=== PATIENT | male | born 1985 | race Caucasian/White ===

== ENCOUNTER 2020-03-13 02:12 | Inpatient (IN) | payer MEDICARE, MEDICAID ==
[~2020-03-13] VITALS: Ht 152.4 cm; Wt 67.0 kg
[~2020-03-13 02:12] MED LIST: DULO20CA PO; HYDR2TAB58 PO; INSLANTI SC; INSLISPI SC; LISI-646 PO; LISI2.5T47 PO
[2020-03-13] MEDS ORDERED: SODIUM CHLORIDE 0.9% 1,000 ML IV ONE (04:15)
[2020-03-13 04:38] LABS: Urine Bacteria FEW /hpf (None Seen); Urine Blood TRACE /uL (Negative); Urine Hyaline Cast FEW /lpf (0 - 2); Urine Specific Gravity 1.021 (1.001-1.035); Urine WBC 1 /hpf (0 - 3)
[2020-03-13] MEDS ORDERED: InsuLIN REG 1unit/0.01ml Soln (100units/ml) IV ONE (05:30)
[2020-03-13] MEDS ORDERED: SODIUM BICARBONATE 8.4 % INJ 50ML VIAL IV ONE (06:00)
[2020-03-13 07:44] LABS: Hematocrit 50.6 % (41.0-53.0); Hemoglobin 15.1 g/dL (13.5-17.5); Mean Corpuscular Hemoglobin 28.2 pg (28.0-32.0); Mean Corpuscular Hgb Conc. 29.9 g/dL (32.0-36.0); Mean Corpuscular Volume 94.3 fL (80.0-100.0); Platelet Count (auto) 497 10^3/uL (140-450); Red Blood Cells 5.37 10^6/uL (4.5-5.90); Red Cell Distribution Width 14.6 % (11.8-14.3); White Blood Cell 23.5 10^3/uL (4.4-10.8)
[2020-03-13 07:47] LABS: Basophils % (manual) 0 (0.0-2.0); Blast Cells 0; Eosinophils % (manual) 0 (0-7); Metamyelocytes % 0; Myelocytes % 0; Promyelocytes % 0; Reactive Lymphocytes 0
[2020-03-13 07:56] LABS: Albumin 3.4 g/dL (3.4-5.0); Calcium 9.7 mg/dL (8.5-10.1)
[2020-03-13] MEDS: SODIUM CHLORIDE 0.9% 1,000 ML IV SCH ×5 (08:00→10:21)
[2020-03-13 08:05] LABS: Bilirubin, Total 0.4 mg/dL (0.2-1.0); Total Protein 8.7 g/dL (6.4-8.2)
[2020-03-13 08:11] LABS: Potassium 5.7 mmol/L (3.5-5.1)
[2020-03-13 08:12] LABS: BUN/Creatinine Ratio 23.9
[2020-03-13] MEDS ORDERED: InsuLIN R (HUMAN) 100 UNITS in SODIUM CHL 0.9% 99 ML IV SCH ×2 (08:13→16:15)
[2020-03-13] MEDS ORDERED: DEXTROSE (50%) 50ML SYRG IV PRN ×2 (08:15→16:30)
[2020-03-13 08:39] LABS: Band Neutrophils % (manual) 2; Lymphocytes % (manual) 9 (10.0-50.0); Monocytes % (manual) 2 (0-12)
[2020-03-13] MEDS: ACCU-CHEK COMFORT CURVE STRIP VI SCH ×8 (09:19→18:04)
[2020-03-13 09:41] LABS: Lactic Acid w/Reflex 5.2 mmol/L (0.4-2.0)
[2020-03-13] MEDS ORDERED: LORazepam 0.5 MG TAB PO PRN (10:15)
[2020-03-13] MEDS ORDERED: DOCUSATE SOD 100 MG CAP PO PRN (10:15)
[2020-03-13] MEDS ORDERED: ONDANSETRON HCL 4 MG/2 ML VIAL IV PRN (10:15)
[2020-03-13] MEDS ORDERED: HYDROcodone-ACET 5/325MG TAB PO PRN (10:15)
[2020-03-13] MEDS ORDERED: CEFTRIAXONE SODIUM 2 GM in D5W 5% 50 ML IV ONE (10:15)
[2020-03-13] MEDS ORDERED: MORPHINE SULF INJ 2 MG/ML SYRINGE 1ML IV PRN ×2 (10:15)
[2020-03-13] MEDS ORDERED: ACETAMINOPHEN 325 MG TAB PO PRN (10:15)
[2020-03-13] MEDS ORDERED: NITROGLYCERIN 0.4 MG SL TAB SL PRN (10:15)
[2020-03-13 10:45] LABS: Alcohol, Urine < 3.0 mg/dL (0-10); Amphetamine Screen, Urine POSITIVE (NEGATIVE); Barbiturate Scree,Urine NEGATIVE (NEGATIVE); Benzodiazephine Screen, Urine NEGATIVE (NEGATIVE); Cannabinoid Screen, Urine NEGATIVE (NEGATIVE); Cocaine Screen, Urine NEGATIVE (NEGATIVE); Opiate Scree,Urine NEGATIVE (NEGATIVE); Phencyclidine Screen, Urine NEGATIVE (NEGATIVE)
[2020-03-13 10:54] LABS: Cholesterol 240 mg/dL (< 200)
[2020-03-13 10:57] LABS: HDL Cholesterol 38 mg/dL (40-59); LDL Cholesterol 158 mg/dL (< 100); Triglycerides 164 mg/dL (< 150)
[2020-03-13 11:19] LABS: Urine Bacteria NONE SEEN /hpf (None Seen); Urine Blood TRACE /uL (Negative); Urine Hyaline Cast FEW /lpf (0 - 2); Urine Specific Gravity 1.019 (1.001-1.035); Urine WBC <1 /hpf (0 - 3)
[2020-03-13] MEDS ORDERED: SODIUM CHLORIDE 0.9% 1,000 ML IV SCH ×2 (12:13→14:13)
[2020-03-13 14:46] LABS: BUN/Creatinine Ratio 27.6; Calcium 7.6 mg/dL (8.5-10.1); Potassium 3.2 mmol/L (3.5-5.1)
[2020-03-13] MEDS ORDERED: LACTATED RINGER'S 1,000 ML IV ONE (16:15)
[2020-03-13] MEDS ORDERED: INSULIN LANTUS (GLARGINE) 1 /0.01ml (100units/ml) SC ONE ×2 (16:15)
[2020-03-13] MEDS: D5W/ SOD CHL 0.9%/KCL 20MEQ 1,000 ML IV SCH (16:38)
[2020-03-13] MEDS: INSULIN LISPRO (HUMAN) 100 UNITS/ML ML SC SCH (18:00)
[2020-03-13] MEDS: InsuLIN REG 1unit/0.01ml Soln (100units/ml) SC SCH (18:11)
[2020-03-13] MEDS: INSULIN LANTUS (GLARGINE) 1 /0.01ml (100units/ml) SC SCH (22:15)
[2020-03-13] MEDS: ATORVASTATIN 20 MG TAB PO SCH (22:15)
[2020-03-13] MEDS: GABAPENTIN 300 MG CAP PO SCH (22:15)
[2020-03-13] MEDS: VENLAFAXINE HCL 37.5MG TABLET PO SCH (22:16)
[2020-03-13] MEDS: CLINDAMYCIN 300MG IV 50 ML IV SCH (22:16)
[2020-03-13] MEDS: FAMOTIDINE (10MG/ML) 2ML VL IV SCH (22:16)
[2020-03-13 22:25] LABS: Calcium 8.2 mg/dL (8.5-10.1); Potassium 3.4 mmol/L (3.5-5.1)
[2020-03-13 22:28] LABS: BUN/Creatinine Ratio 26.1
--- NOTE | 2020-03-13 22:35 | NUR ---
Telemetry admit from ER ILDA XIAO admitted to Telemetry unit room 222B. Respirations even and unlabored, no distress noted. Patient oriented to Trung gallegos RN, unit, room, bed, and unit policies regarding patient care. Patient instructed on POC, fall precautions and to call for assistance. Patient nodded head in a "yes" motion and did not open eyes. Patient transferred self from ER [facility] to the hospital bed with no assistance from staff. Patient now on continuous telemetry monitoring and room air. Fall precautions in place with call light within reach.
--- NOTE | 2020-03-13 23:04 | NUR ---
UNABLE TO CONFIRM PATIENT'S ENTIRE MEDICATION LIST PATIENT ONLY ABLE TO CONFIRM INSULIN MEDICATION. PATIENT DID NOT CONFIRM ANY OTHER MEDICATION AT THIS TIME. WILL INFORM DAYSHIFT RN.
[2020-03-14] MEDS: D5W/ SOD CHL 0.9%/KCL 20MEQ 1,000 ML IV SCH ×4 (00:35→17:15)
[2020-03-14] MEDS: ACCU-CHEK COMFORT CURVE STRIP VI SCH ×5 (00:36→23:39)
[2020-03-14] MEDS: InsuLIN REG 1unit/0.01ml Soln (100units/ml) SC SCH ×5 (00:58→23:39)
--- NOTE | 2020-03-14 02:56 | NUR ---
Patient resting in bed with eyes closed; respirations even and unlabored, no distress noted. Call light within reach.
[2020-03-14 04:24] LABS: Basophils # (auto) 0 10 ^3/uL (0-0.2); Basophils % (auto) 0.3 % (0.0-2.0); Eosinophils # (auto) 0 10 ^3/uL (0-0.8); Hematocrit 39.3 % (41.0-53.0); Hemoglobin 12.9 g/dL (13.5-17.5); Lymphocytes # (auto) 1.5 10 ^3/uL (0.4-5.4); Lymphocytes % (auto) 9.3 % (10.0-50.0); Mean Corpuscular Hemoglobin 28.5 pg (28.0-32.0); Mean Corpuscular Hgb Conc. 32.8 g/dL (32.0-36.0); Mean Corpuscular Volume 86.9 fL (80.0-100.0); Monocytes # (auto) 0.9 10 ^3/uL (0-1.3); Monocytes % (auto) 5.5 % (0.0-12.0); Neutrophils # (auto) 13.9 10 ^3/uL (1.6-8.6); Neutrophils % (auto) 84.9 % (37.0-80.0); Platelet Count (auto) 366 10^3/uL (140-450); Red Blood Cells 4.52 10^6/uL (4.5-5.90); Red Cell Distribution Width 13.8 % (11.8-14.3); White Blood Cell 16.4 10^3/uL (4.4-10.8)
[2020-03-14 04:33] LABS: Potassium 3.8 mmol/L (3.5-5.1)
[2020-03-14 04:43] LABS: Albumin 2.3 g/dL (3.4-5.0); BUN/Creatinine Ratio 23.3; Bilirubin, Total 0.2 mg/dL (0.2-1.0); Calcium 7.8 mg/dL (8.5-10.1); Magnesium 2.2 mg/dL (1.6-2.6); Total Protein 6.2 g/dL (6.4-8.2)
--- NOTE | 2020-03-14 04:51 | NUR ---
Patient resting in bed with eyes closed; respirations even and unlabored, no distress noted. Call light within reach.
[2020-03-14 05:21] LABS: INR 1.06 (0.9-1.15); Partial Thromboplastin Time 26.2 sec (23.64-32.05)
[2020-03-14] MEDS: CLINDAMYCIN 300MG IV 50 ML IV SCH ×3 (05:56→23:18)
[2020-03-14] MEDS: GABAPENTIN 300 MG CAP PO SCH ×3 (05:57→23:18)
[2020-03-14 06:03] VITALS: BP 134/70
--- NOTE | 2020-03-14 06:38 | NUR ---
Closing note Patient resting in bed with eyes closed; respirations even and unlabored, no distress noted. Fall precautions in place with call light within reach.
--- NOTE | 2020-03-14 07:30 | NUR ---
Care endorsed to CARRIE Mahmood.
--- NOTE | 2020-03-14 07:35 | NUR ---
RECEIVED REPORT AND CONTINUATION OF CARE,PATIENT ASLEEP BUT EASILY AROUSABLE AWAKE,ALERT,ORIENTED,COOPERATIVE,INSTRUCTED ON PLAN OF CARE AND EXPLAIN DISEASE PROCESS,CALL LIGHT WITHIN REACH,PATIENT REMINDED INSTRUCTED TO CALL FOR ASSISTANCE.PATIENT VERBALIZED UNDERSTANDING
[2020-03-14 08:00] VITALS: BP 144/89
[2020-03-14 09:00] VITALS: BP 144/89
[2020-03-14] MEDS: INSULIN LISPRO (HUMAN) 100 UNITS/ML ML SC SCH ×2 (09:46→12:00)
[2020-03-14] MEDS: ASPirin-EC 81 mg tab PO SCH (10:51)
[2020-03-14] MEDS: VENLAFAXINE HCL 37.5MG TABLET PO SCH ×2 (10:51→23:19)
[2020-03-14] MEDS: FAMOTIDINE (10MG/ML) 2ML VL IV SCH ×2 (10:51→23:18)
[2020-03-14] MEDS: LISINOPRIL 20 MG TAB PO SCH (10:52)
[2020-03-14] MEDS: ENOXAPARIN SOD 40 MG/0.4 ML SYRINGE SC SCH (10:52)
[2020-03-14] MEDS: cefTRIAXone 1GM/50ML D5W 50 ML IV SCH (10:53)
[2020-03-14 13:00] VITALS: BP 141/81
--- NOTE | 2020-03-14 13:00 | NUR ---
INFORMED DR. Ayana WHITE HERE TO SEE AND EXAMINED PATIENT,INFORMED PATIENT HAD HUMALOG 8 UNITS THIS A.M. AND ACCU CHECK RESULT FOR LUNCH WAS 66 RECEIVED ORDER TO DISCONTINUE HUMALOG
--- NOTE | 2020-03-14 17:00 | NUR ---
PATIENT HAS NOT VOIDED,PER PATIENT DOES NOT VOID A LOT BUT EXPLAIN TO PATIENT HE IS RECEIVING A LOT OF FLUID FROM IV AND ORAL,STATED HE WILL VOID.
[2020-03-14 17:25] VITALS: BP 125/74
--- NOTE | 2020-03-14 17:30 | NUR ---
PATIENT VOIDED IN URINAL 1000 ML
--- NOTE | 2020-03-14 19:30 | NUR ---
Opening Shift Note Assumed care of patient, resting with eyes closed. No S/S of distress/SOB or pain. Pt slow to respond to verbal, therefore gentle touch added along with admonition if pt does not respond to verbal or touch timely, then med/nursing staff will change care presented to more serious level. Pt VU. Instructed on POC and to call for assist PRN. Pt again VU. RN will continue to monitor for changes Q1hr and PRN. Bed low with HOB in semi-Becker's position. Nurse call light within pt's reach.
--- NOTE | 2020-03-14 19:34 | NUR ---
STATUS UNCHANGED, NO DISTRESS,NO DISCOMFORT.REPORT GIVEN TO JAMIL NEVES RN
[2020-03-14] MEDS: INSULIN LANTUS (GLARGINE) 1 /0.01ml (100units/ml) SC SCH (22:00)
[2020-03-14 22:29] VITALS: BP 129/69
[2020-03-14] MEDS: ATORVASTATIN 20 MG TAB PO SCH (23:20)
[2020-03-15] MEDS: D5W/ SOD CHL 0.9%/KCL 20MEQ 1,000 ML IV SCH ×3 (05:18→17:54)
[2020-03-15 05:30] VITALS: BP 144/77
[2020-03-15] MEDS: ACCU-CHEK COMFORT CURVE STRIP VI SCH ×4 (06:00→23:15)
[2020-03-15] MEDS: CLINDAMYCIN 300MG IV 50 ML IV SCH ×3 (06:00→23:00)
[2020-03-15] MEDS: GABAPENTIN 300 MG CAP PO SCH ×3 (06:00→23:00)
[2020-03-15] MEDS: InsuLIN REG 1unit/0.01ml Soln (100units/ml) SC SCH ×4 (06:00→23:15)
--- NOTE | 2020-03-15 07:30 | NUR ---
RECEIVED REPORT AND CONTINUATION OF CARE,PATIENT AWAKE,ALERT,ORIENTED,COOPERATIVE,INSTRUCTED ON PLAN OF CARE AND EXPLAIN DISEASE PROCESS,CALL LIGHT WITHIN REACH,PATIENT REMINDED INSTRUCTED TO CALL FOR ASSISTANCE.PATIENT VERBALIZED UNDERSTANDING
[2020-03-15 07:50] LABS: Basophils # (auto) 0 10 ^3/uL (0-0.2); Basophils % (auto) 0.2 % (0.0-2.0); Eosinophils # (auto) 0 10 ^3/uL (0-0.8); Eosinophils % (auto) 0.3 % (0.0-7.0); Hematocrit 39.3 % (41.0-53.0); Lymphocytes # (auto) 1.1 10 ^3/uL (0.4-5.4); Lymphocytes % (auto) 13.9 % (10.0-50.0); Mean Corpuscular Hemoglobin 28.7 pg (28.0-32.0); Mean Corpuscular Hgb Conc. 33.2 g/dL (32.0-36.0); Mean Corpuscular Volume 86.4 fL (80.0-100.0); Monocytes # (auto) 0.5 10 ^3/uL (0-1.3); Monocytes % (auto) 5.9 % (0.0-12.0); Neutrophils # (auto) 6.4 10 ^3/uL (1.6-8.6); Neutrophils % (auto) 79.7 % (37.0-80.0); Platelet Count (auto) 296 10^3/uL (140-450); Red Blood Cells 4.55 10^6/uL (4.5-5.90); Red Cell Distribution Width 14.1 % (11.8-14.3)
[2020-03-15 08:00] VITALS: BP_SYST 144; BP_SYST 147; BP_DIAS 89; BP_DIAS 90
[2020-03-15 08:09] LABS: Albumin 2.3 g/dL (3.4-5.0); BUN/Creatinine Ratio 16.9; Calcium 8.1 mg/dL (8.5-10.1); Potassium 3.8 mmol/L (3.5-5.1)
[2020-03-15 08:12] LABS: Bilirubin, Total 0.3 mg/dL (0.2-1.0); Total Protein 6.3 g/dL (6.4-8.2)
--- NOTE | 2020-03-15 08:30 | NUR ---
MD VISIT DR. Ayana WHITE HERE TO SEE AND EXAMINED PATIENT,STATED DISCHARGE PLANNING FOR TOMORROW
[2020-03-15] MEDS: LISINOPRIL 20 MG TAB PO SCH (11:07)
[2020-03-15] MEDS: VENLAFAXINE HCL 37.5MG TABLET PO SCH ×2 (11:08→23:00)
[2020-03-15] MEDS: ASPirin-EC 81 mg tab PO SCH (11:08)
[2020-03-15] MEDS: ENOXAPARIN SOD 40 MG/0.4 ML SYRINGE SC SCH (11:09)
[2020-03-15] MEDS: FAMOTIDINE (10MG/ML) 2ML VL IV SCH ×2 (11:09→22:00)
[2020-03-15] MEDS: cefTRIAXone 1GM/50ML D5W 50 ML IV SCH (11:10)
[2020-03-15 12:00] VITALS: BP 126/78
[2020-03-15 17:00] VITALS: BP 115/68
--- NOTE | 2020-03-15 19:18 | NUR ---
STATUS UNCHANGED, NO DISTRESS,NO DISCOMFORT.REPORT GIVEN TO JAMIL NEVES RN
--- NOTE | 2020-03-15 19:30 | NUR ---
Opening Shift Note Assumed care of patient, sleeping lightly. Pt responds easily to vocal stimuli. No S/S of distress/SOB or pain. Instructed on POC and to call for assist PRN. Bed low with HOB in semi-Becker's position. Call light within reach. RN will continue to monitor for changes Q1hr and PRN.
[2020-03-15] MEDS: INSULIN LANTUS (GLARGINE) 1 /0.01ml (100units/ml) SC SCH (22:00)
[2020-03-15 22:09] VITALS: BP 136/81
[2020-03-15] MEDS: ATORVASTATIN 20 MG TAB PO SCH (23:00)
--- NOTE | 2020-03-16 00:05 | NUR ---
BG 74; insulins held and sandwich with low fat milk given to pt.
[2020-03-16] MEDS: D5W/ SOD CHL 0.9%/KCL 20MEQ 1,000 ML IV SCH (02:35)
[2020-03-16 05:02] VITALS: BP 126/85
[2020-03-16] MEDS: CLINDAMYCIN 300MG IV 50 ML IV SCH (05:51)
[2020-03-16] MEDS: ACCU-CHEK COMFORT CURVE STRIP VI SCH (06:04)
[2020-03-16] MEDS: GABAPENTIN 300 MG CAP PO SCH (06:04)
[2020-03-16] MEDS: InsuLIN REG 1unit/0.01ml Soln (100units/ml) SC SCH (06:13)
[2020-03-16 07:38] LABS: Basophils # (auto) 0 10 ^3/uL (0-0.2); Basophils % (auto) 0.8 % (0.0-2.0); Eosinophils # (auto) 0.1 10 ^3/uL (0-0.8); Eosinophils % (auto) 1.2 % (0.0-7.0); Hematocrit 41.9 % (41.0-53.0); Hemoglobin 13.8 g/dL (13.5-17.5); Lymphocytes % (auto) 34.2 % (10.0-50.0); Mean Corpuscular Hemoglobin 28.7 pg (28.0-32.0); Monocytes # (auto) 0.3 10 ^3/uL (0-1.3); Monocytes % (auto) 5.4 % (0.0-12.0); Neutrophils # (auto) 3.5 10 ^3/uL (1.6-8.6); Neutrophils % (auto) 58.4 % (37.0-80.0); Nucleated Red Blood Cells % 0.2 %; Platelet Count (auto) 318 10^3/uL (140-450); Red Blood Cells 4.81 10^6/uL (4.5-5.90); Red Cell Distribution Width 14.3 % (11.8-14.3)
[2020-03-16 07:55] LABS: Albumin 2.4 g/dL (3.4-5.0); BUN/Creatinine Ratio 21.6; Calcium 8.7 mg/dL (8.5-10.1); Potassium 4.5 mmol/L (3.5-5.1)
[2020-03-16 07:57] LABS: Bilirubin, Total 0.4 mg/dL (0.2-1.0); Total Protein 6.8 g/dL (6.4-8.2)
[2020-03-16 08:00] VITALS: BP 137/87
[2020-03-16] MEDS: VENLAFAXINE HCL 37.5MG TABLET PO SCH (09:44)
[2020-03-16] MEDS: FAMOTIDINE (10MG/ML) 2ML VL IV SCH (09:44)
[2020-03-16] MEDS: LISINOPRIL 20 MG TAB PO SCH (09:45)
[2020-03-16] MEDS: ASPirin-EC 81 mg tab PO SCH (09:46)
[2020-03-16] MEDS: cefTRIAXone 1GM/50ML D5W 50 ML IV SCH (09:46)
[2020-03-16] MEDS: ENOXAPARIN SOD 40 MG/0.4 ML SYRINGE SC SCH (09:46)
[2020-03-16 10:37] VITALS: BP 137/87
--- NOTE | 2020-03-16 17:28 | NUR ---
Patient Discharged Received an order to discharge the patient. The patient was prepared for discharge. Gathered all the required paperwork, explained it all to the patient. He stated he understood. Explained he needed to make an appointment with his PCP as he was out of the area. The patient received his prescription. Removed his IV and the telemetry box. Wheeled the patient out to a cab at 1135hrs.
== END 2020-03-16 11:30 | disposition home or self-care (01) | DRG 871 ==
LOC: ER 02:12 → EDBD 02:12 → TELE 02:13 → TELE-CENTR 22:35
PROVIDERS: ADMIT Hospitalist; ATTEND Family Medicine
DX: A41.9 Sepsis, unspecified organism (principal); E10.10 Type 1 diabetes mellitus with ketoacidosis without coma; J18.9 Pneumonia, unspecified organism; N17.0 Acute kidney failure with tubular necrosis; A04.9 Bacterial intestinal infection, unspecified; K31.84 Gastroparesis; G62.9 Polyneuropathy, unspecified; R80.9 Proteinuria, unspecified; N18.9 Chronic kidney disease, unspecified; E66.9 Obesity, unspecified; E10.22 Type 1 diabetes mellitus with diabetic chronic kidney disease; E10.43 Type 1 diabetes mellitus with diabetic autonomic (poly)neuropathy; E78.00 Pure hypercholesterolemia, unspecified; E78.5 Hyperlipidemia, unspecified; E86.0 Dehydration; F17.200 Nicotine dependence, unspecified, uncomplicated; F32.9 Major depressive disorder, single episode, unspecified; I12.9 Hypertensive chronic kidney disease with stage 1 through stage 4 chronic kidney disease, or unspecified chronic kidney disease; K21.9 Gastro-esophageal reflux disease without esophagitis; K29.70 Gastritis, unspecified, without bleeding; F19.10 Other psychoactive substance abuse, uncomplicated; Z79.4 Long term (current) use of insulin; Z79.899 Other long term (current) drug therapy; Z83.3 Family history of diabetes mellitus; Z89.511 Acquired absence of right leg below knee; Z89.512 Acquired absence of left leg below knee; Z91.14 Patient's other noncompliance with medication regimen; Z91.19 Patient's noncompliance with other medical treatment and regimen; Z68.31 Body mass index [BMI] 31.0-31.9, adult
CPT/HCPCS: 36415; 36600; 80048; 80053; 80061; 80307; 81001; 82010; 82150; 82805; 82962; 83036; 83605; 83690; 83735; 83880; 84100; 84484; 85007; 85025; 85027; 85610; 85730; 87040; 87086; 93005; G0378; J0696; J1815; J3490; J7060

== ENCOUNTER 2021-07-07 10:04 | Emergency (ER) | payer MEDICARE, MEDICAID ==
[~2021-07-07] VITALS: Ht 152.4 cm; Wt 59.0 kg
[~2021-07-07 10:04] MED LIST changes: -LISI-646 PO; +LISI20TA28 PO
[2021-07-07 12:44] VITALS: BP 120/82
== END 2021-07-07 12:43 | disposition home or self-care (01) ==
LOC: ER 10:04
DX: T87.9 Unspecified complications of amputation stump (principal); I12.9 Hypertensive chronic kidney disease with stage 1 through stage 4 chronic kidney disease, or unspecified chronic kidney disease; E11.22 Type 2 diabetes mellitus with diabetic chronic kidney disease; N18.9 Chronic kidney disease, unspecified; Z79.4 Long term (current) use of insulin; Z79.2 Long term (current) use of antibiotics; Z79.899 Other long term (current) drug therapy

== ENCOUNTER 2021-07-28 10:26 | Inpatient (IN) | payer MEDICARE, MEDICAID ==
[~2021-07-28] VITALS: Ht 152.4 cm; Wt 67.6 kg
[2021-07-28 11:18] LABS: Eosinophils # (auto) 0.1 10 ^3/uL (0-0.8); Hemoglobin 10.5 g/dL (13.5-17.5); Monocytes # (auto) 0.5 10 ^3/uL (0-1.3)
[2021-07-28 11:20] LABS: Basophils # (auto) 0 10 ^3/uL (0-0.2); Basophils % (auto) 0.6 % (0.0-2.0); Eosinophils % (auto) 1.7 % (0.0-7.0); Lymphocytes # (auto) 1.8 10 ^3/uL (0.4-5.4); Lymphocytes % (auto) 25.4 % (10.0-50.0); Mean Corpuscular Hemoglobin 26.1 pg (28.0-32.0); Mean Corpuscular Hgb Conc. 31.8 g/dL (32.0-36.0); Mean Corpuscular Volume 82.2 fL (80.0-100.0); Monocytes % (auto) 7.6 % (0.0-12.0); Neutrophils # (auto) 4.6 10 ^3/uL (1.6-8.6); Neutrophils % (auto) 64.7 % (37.0-80.0); Nucleated Red Blood Cells % 0.2 %; Red Blood Cells 4.02 10^6/uL (4.5-5.90); White Blood Cell 7.1 10^3/uL (4.4-10.8)
[2021-07-28 11:39] LABS: Calcium 8.5 mg/dL (8.5-10.1); Potassium 4.2 mmol/L (3.5-5.1)
[2021-07-28 11:44] LABS: BUN/Creatinine Ratio 32.3; Bilirubin, Total 0.1 mg/dL (0.2-1.0); Total Protein 7.8 g/dL (6.4-8.2)
[2021-07-28] MEDS ORDERED: SODIUM CHLORIDE 0.9% 2,000 ML IV ONE (12:15)
[2021-07-28] MEDS ORDERED: ONDANSETRON HCL 4 MG/2 ML VIAL IV PRN ×2 (12:15→18:00)
[2021-07-28] MEDS ORDERED: HYDROmorphone HCL 2 MG/ML VL IV ONE (12:15)
[2021-07-28] MEDS ORDERED: IOHEXOL 350 MG/ML 100ML IJ ONE ×2 (13:25→13:30)
[2021-07-28] MEDS ORDERED: CEFEPIME 2 GM in SODIUM CHL 0.9% 50 ML IV ONE (13:30)
[2021-07-28] MEDS ORDERED: DEXTROSE 50% SYRINGE 50 ML IV ONE (14:11)
[2021-07-28] MEDS ORDERED: DEXTROSE (50%) 50ML SYRG IV ONE (14:30)
[2021-07-28] MEDS ORDERED: HYDROmorphone HCL 2 MG/ML VL IV PRN (16:00)
[2021-07-28 17:47] LABS: INR 1.01 (0.9-1.15)
[2021-07-28] MEDS ORDERED: ACETAMINOPHEN 325 MG TAB PO PRN (18:00)
[2021-07-28] MEDS ORDERED: VANCOMYCIN PER PHARMACY 0 MG IV SCH (18:00)
[2021-07-28] MEDS ORDERED: LISINOPRIL 10 MG TAB PO ONE (18:00)
[2021-07-28] MEDS ORDERED: MORPHINE SULFATE INJECTION 2 MG/ML SYRG IV PRN ×2 (18:00)
[2021-07-28] MEDS ORDERED: NITROGLYCERIN 0.4 MG SL TAB SL PRN (18:00)
[2021-07-28] MEDS ORDERED: HYDROcodone-ACET 5/325MG TAB PO PRN (18:00)
[2021-07-28] MEDS ORDERED: VANCOMYCIN 1GM/250ML 250 ML IV ONE (18:30)
[2021-07-28] MEDS: SODIUM CHLORIDE 0.9% 1,000 ML IV SCH ×2 (18:33→21:40)
[2021-07-28] MEDS ORDERED: HYDROmorphone HCL 2 MG/ML VL ONE (18:37)
[2021-07-28] MEDS: HYDROmorphone HCL 2 MG/ML VL IV PRN ×2 (18:56→23:03)
[2021-07-28 21:00] VITALS: BP 124/85
[2021-07-28] MEDS: ACCU-CHEK COMFORT CURVE STRIP VI SCH (21:41)
[2021-07-28] MEDS: LORazepam 0.5 MG TAB PO PRN (21:48)
[2021-07-28] MEDS: InsuLIN REG 1unit/0.01ml Soln (100units/ml) SC SCH (21:49)
[2021-07-29 05:00] VITALS: BP_SYST 105; BP_SYST 138; BP_DIAS 58; BP_DIAS 92
[2021-07-29] MEDS: VANCOMYCIN 1GM/250ML 250 ML IV SCH ×2 (05:42→17:15)
[2021-07-29] MEDS: HYDROmorphone HCL 2 MG/ML VL IV PRN ×5 (05:43→23:15)
[2021-07-29] MEDS: ACCU-CHEK COMFORT CURVE STRIP VI SCH ×4 (05:44→21:07)
[2021-07-29] MEDS: InsuLIN REG 1unit/0.01ml Soln (100units/ml) SC SCH ×4 (06:31→21:08)
[2021-07-29 07:03] LABS: Eosinophils # (auto) 0.2 10 ^3/uL (0-0.8); Hematocrit 30.8 % (41.0-53.0); Lymphocytes # (auto) 1.4 10 ^3/uL (0.4-5.4); Mean Corpuscular Volume 80.6 fL (80.0-100.0); Monocytes # (auto) 0.6 10 ^3/uL (0-1.3); White Blood Cell 6.4 10^3/uL (4.4-10.8)
[2021-07-29 07:06] LABS: Basophils # (auto) 0 10 ^3/uL (0-0.2); Basophils % (auto) 0.7 % (0.0-2.0); Eosinophils % (auto) 3.1 % (0.0-7.0); Hemoglobin 9.9 g/dL (13.5-17.5); Lymphocytes % (auto) 22.5 % (10.0-50.0); Mean Corpuscular Hemoglobin 25.8 pg (28.0-32.0); Monocytes % (auto) 8.9 % (0.0-12.0); Neutrophils # (auto) 4.2 10 ^3/uL (1.6-8.6); Neutrophils % (auto) 64.8 % (37.0-80.0); Nucleated Red Blood Cells % 0.4 %; Red Blood Cells 3.81 10^6/uL (4.5-5.90)
[2021-07-29 07:14] LABS: Potassium 4.4 mmol/L (3.5-5.1)
[2021-07-29 07:25] LABS: Albumin 2.7 g/dL (3.4-5.0); BUN/Creatinine Ratio 33.3; Bilirubin, Total 0.2 mg/dL (0.2-1.0); Calcium 8.5 mg/dL (8.5-10.1); Total Protein 6.6 g/dL (6.4-8.2)
[2021-07-29 08:00] VITALS: BP 133/81
[2021-07-29 10:00] VITALS: BP 133/81
[2021-07-29] MEDS ORDERED: CEFEPIME 1 GM in SODIUM CHL 0.9% 50 ML IV SCH ×2 (10:00→22:00)
[2021-07-29] MEDS ORDERED: INSULIN LANTUS (GLARGINE) 1 /0.01ml (100units/ml) SC SCH (10:00)
[2021-07-29 12:30] VITALS: BP 124/78
[2021-07-29] MEDS ORDERED: INSULIN LANTUS (GLARGINE) 1 /0.01ml (100units/ml) SC ONE (13:00)
[2021-07-29 16:53] VITALS: BP 122/68
[2021-07-29] MEDS: INSULIN LANTUS (GLARGINE) 1 /0.01ml (100units/ml) SC SCH (21:09)
[2021-07-29 22:00] VITALS: BP 137/82
[2021-07-29] MEDS: LORazepam 0.5 MG TAB PO PRN (23:10)
[2021-07-30] MEDS: SODIUM CHLORIDE 0.9% 1,000 ML IV SCH (03:20)
[2021-07-30 05:00] VITALS: BP 109/63
[2021-07-30] MEDS: HYDROmorphone HCL 2 MG/ML VL IV PRN ×5 (05:42→23:44)
[2021-07-30] MEDS: InsuLIN REG 1unit/0.01ml Soln (100units/ml) SC SCH ×4 (05:44→21:13)
[2021-07-30] MEDS: ACCU-CHEK COMFORT CURVE STRIP VI SCH ×4 (05:45→21:14)
[2021-07-30 06:37] LABS: Basophils # (auto) 0 10 ^3/uL (0-0.2); Eosinophils # (auto) 0.2 10 ^3/uL (0-0.8); Lymphocytes # (auto) 1.9 10 ^3/uL (0.4-5.4); Monocytes # (auto) 0.6 10 ^3/uL (0-1.3); Neutrophils % (auto) 51.5 % (37.0-80.0)
[2021-07-30 06:44] LABS: Basophils % (auto) 0.8 % (0.0-2.0); Eosinophils % (auto) 3.7 % (0.0-7.0); Hematocrit 30.9 % (41.0-53.0); Lymphocytes % (auto) 34.1 % (10.0-50.0); Mean Corpuscular Hemoglobin 25.9 pg (28.0-32.0); Mean Corpuscular Hgb Conc. 32.3 g/dL (32.0-36.0); Mean Corpuscular Volume 80.3 fL (80.0-100.0); Monocytes % (auto) 9.9 % (0.0-12.0); Neutrophils # (auto) 2.9 10 ^3/uL (1.6-8.6); Nucleated Red Blood Cells % 0.3 %; Red Blood Cells 3.84 10^6/uL (4.5-5.90); Red Cell Distribution Width 16.5 % (11.8-14.3); White Blood Cell 5.6 10^3/uL (4.4-10.8)
[2021-07-30 06:47] LABS: Albumin 2.9 g/dL (3.4-5.0); BUN/Creatinine Ratio 32.8; Calcium 8.6 mg/dL (8.5-10.1); Potassium 4.6 mmol/L (3.5-5.1)
[2021-07-30 06:50] LABS: Bilirubin, Total 0.1 mg/dL (0.2-1.0); Total Protein 6.7 g/dL (6.4-8.2)
[2021-07-30] MEDS ORDERED: VANCOMYCIN 1GM/250ML 250 ML IV SCH (08:45)
[2021-07-30 08:55] VITALS: BP 119/79
[2021-07-30] MEDS: INSULIN LANTUS (GLARGINE) 1 /0.01ml (100units/ml) SC SCH ×2 (10:00→21:14)
[2021-07-30] MEDS: CEFEPIME 1 GM in SODIUM CHL 0.9% 50 ML IV SCH ×2 (11:24→18:50)
[2021-07-30 12:14] VITALS: BP 119/86
[2021-07-30] MEDS ORDERED: POLYETHYLENE GLYCOL 17 GM PWDR PO ONE (15:45)
[2021-07-30 16:50] VITALS: BP 132/92
[2021-07-30] MEDS: VANCOMYCIN 1GM/250ML 250 ML IV SCH (17:21)
[2021-07-30] MEDS ORDERED: INSULIN LISPRO (HUMAN) 100 UNITS/ML ML SC ONE (17:30)
[2021-07-30] MEDS: ATORVASTATIN 20 MG TAB PO SCH (21:15)
[2021-07-30 22:00] VITALS: BP 123/81
[2021-07-30] MEDS: LORazepam 0.5 MG TAB PO PRN (23:43)
[2021-07-31] MEDS: VANCOMYCIN 1GM/250ML 250 ML IV SCH ×3 (00:28→17:42)
[2021-07-31] MEDS: CEFEPIME 1 GM in SODIUM CHL 0.9% 50 ML IV SCH ×3 (01:47→18:44)
[2021-07-31 05:00] VITALS: BP 142/99
[2021-07-31] MEDS: ACCU-CHEK COMFORT CURVE STRIP VI SCH ×4 (06:02→20:45)
[2021-07-31] MEDS: InsuLIN REG 1unit/0.01ml Soln (100units/ml) SC SCH ×4 (06:02→20:55)
[2021-07-31] MEDS: HYDROmorphone HCL 2 MG/ML VL IV PRN ×4 (06:22→20:45)
[2021-07-31 07:52] LABS: Basophils # (auto) 0 10 ^3/uL (0-0.2); Basophils % (auto) 0.6 % (0.0-2.0); Eosinophils # (auto) 0.2 10 ^3/uL (0-0.8); Eosinophils % (auto) 2.7 % (0.0-7.0); Hematocrit 32.8 % (41.0-53.0); Hemoglobin 10.4 g/dL (13.5-17.5); Lymphocytes # (auto) 1.8 10 ^3/uL (0.4-5.4); Lymphocytes % (auto) 26.7 % (10.0-50.0); Mean Corpuscular Hemoglobin 25.4 pg (28.0-32.0); Mean Corpuscular Hgb Conc. 31.8 g/dL (32.0-36.0); Mean Corpuscular Volume 79.7 fL (80.0-100.0); Monocytes # (auto) 0.6 10 ^3/uL (0-1.3); Neutrophils # (auto) 4.1 10 ^3/uL (1.6-8.6); Nucleated Red Blood Cells % 0.1 %; Red Blood Cells 4.12 10^6/uL (4.5-5.90); Red Cell Distribution Width 16.2 % (11.8-14.3); White Blood Cell 6.7 10^3/uL (4.4-10.8)
[2021-07-31 08:00] VITALS: BP 131/89
[2021-07-31 08:22] LABS: Potassium 4.7 mmol/L (3.5-5.1)
[2021-07-31 08:35] LABS: Albumin 3.1 g/dL (3.4-5.0); BUN/Creatinine Ratio 32.4; Bilirubin, Total 0.2 mg/dL (0.2-1.0); Calcium 9.3 mg/dL (8.5-10.1); Total Protein 7.2 g/dL (6.4-8.2)
[2021-07-31 09:00] VITALS: BP 119/80
[2021-07-31] MEDS: INSULIN LANTUS (GLARGINE) 1 /0.01ml (100units/ml) SC SCH ×2 (11:04→20:54)
[2021-07-31 13:00] VITALS: BP 131/89
[2021-07-31 17:00] VITALS: BP 125/79
[2021-07-31] MEDS ORDERED: ERGOCALCIFEROL 50,000 UNIT(1.25MG) CAP PO SCH (18:30)
[2021-07-31] MEDS: ATORVASTATIN 20 MG TAB PO SCH (20:44)
[2021-07-31] MEDS: LORazepam 0.5 MG TAB PO PRN (20:44)
[2021-07-31 22:00] VITALS: BP 134/88
[2021-08-01] MEDS: VANCOMYCIN 1GM/250ML 250 ML IV SCH ×3 (00:55→16:07)
[2021-08-01] MEDS: HYDROmorphone HCL 2 MG/ML VL IV PRN ×5 (00:56→20:26)
[2021-08-01] MEDS: CEFEPIME 1 GM in SODIUM CHL 0.9% 50 ML IV SCH ×3 (01:58→17:24)
[2021-08-01 02:40] LABS: Urine Bacteria NONE SEEN /hpf (None Seen); Urine Blood Negative /uL (Negative); Urine Specific Gravity 1.015 (1.001-1.035); Urine WBC 2 /hpf (0 - 3)
[2021-08-01 05:00] VITALS: BP 138/88
[2021-08-01] MEDS: ACCU-CHEK COMFORT CURVE STRIP VI SCH ×4 (05:43→20:26)
[2021-08-01] MEDS: InsuLIN REG 1unit/0.01ml Soln (100units/ml) SC SCH ×4 (06:00→20:53)
[2021-08-01 09:00] VITALS: BP 129/87
[2021-08-01] MEDS: DEXTROSE (50%) 50ML SYRG IV PRN (09:30)
[2021-08-01] MEDS: INSULIN LANTUS (GLARGINE) 1 /0.01ml (100units/ml) SC SCH ×2 (09:30→20:53)
[2021-08-01] MEDS ORDERED: LIDOCAINE 1%-Mpf/Epinephrine 1:200,000 ONE (12:41)
[2021-08-01] MEDS ORDERED: BUPIVACAINE HCL 0 ML ONE (12:41)
[2021-08-01] MEDS ORDERED: POVIDONE IODINE 10 % TOPICAL OINT 30GM TOP ONE (12:44)
[2021-08-01] MEDS ORDERED: fentaNYL CITRATE 100 MCG/2 ML VL ONE (13:00)
[2021-08-01] MEDS ORDERED: MIDAZOLAM HCL 2MG/2ML 2ml VIAL (1mg/ml) ONE (13:01)
[2021-08-01] MEDS ORDERED: MEPERIDINE HCL (50 MG/ML) 1 ML VIAL ONE ×2 (13:01→13:32)
[2021-08-01] MEDS ORDERED: PROPOFOL 10 MG/ML 20 ML IV ONE (13:07)
[2021-08-01] MEDS ORDERED: DexAMETHasone SOD PHOS 10MG/1ML VIAL INJ ONE (13:07)
[2021-08-01] MEDS ORDERED: LABETALOL HCL 5 MG/ML 4ML SYRINGE IV PRN (15:00)
[2021-08-01] MEDS ORDERED: HYDROmorphone HCL 2 MG/ML VL IV PRN (15:00)
[2021-08-01] MEDS ORDERED: ACCU-CHEK COMFORT CURVE STRIP VI ONE (15:00)
[2021-08-01] MEDS ORDERED: MORPHINE SULFATE 4 MG/ML SYR/VIAL IV PRN (15:00)
[2021-08-01] MEDS ORDERED: ePHEDrine SULFATE 50 MG/ML AMP IV PRN (15:00)
[2021-08-01] MEDS ORDERED: ONDANSETRON HCL 4 MG/2 ML VIAL IV PRN (15:00)
[2021-08-01] MEDS ORDERED: MIDAZOLAM HCL 2MG/2ML 2ml VIAL (1mg/ml) IV PRN (15:00)
[2021-08-01 15:51] LABS: Hemoglobin 9.2 g/dL (13.5-17.5); Mean Corpuscular Hemoglobin 25.2 pg (28.0-32.0); Monocytes # (auto) 0.6 10 ^3/uL (0-1.3); Red Blood Cells 3.63 10^6/uL (4.5-5.90); Red Cell Distribution Width 16.6 % (11.8-14.3)
[2021-08-01 15:53] LABS: Basophils # (auto) 0.1 10 ^3/uL (0-0.2); Basophils % (auto) 0.7 % (0.0-2.0); Eosinophils # (auto) 0.1 10 ^3/uL (0-0.8); Eosinophils % (auto) 1.8 % (0.0-7.0); Hematocrit 28.7 % (41.0-53.0); Lymphocytes # (auto) 2.3 10 ^3/uL (0.4-5.4); Lymphocytes % (auto) 28.2 % (10.0-50.0); Mean Corpuscular Hgb Conc. 31.9 g/dL (32.0-36.0); Mean Corpuscular Volume 79.1 fL (80.0-100.0); Neutrophils % (auto) 62.3 % (37.0-80.0); Nucleated Red Blood Cells % 0.1 %
[2021-08-01] MEDS ORDERED: HYDROmorphone HCL 2 MG/ML VL IV ONE (16:30)
[2021-08-01 17:00] VITALS: BP 137/94
[2021-08-01] MEDS: ATORVASTATIN 20 MG TAB PO SCH (20:22)
[2021-08-01] MEDS: GABAPENTIN 100 MG CAP PO SCH (20:23)
[2021-08-01] MEDS: LORazepam 0.5 MG TAB PO PRN (20:53)
[2021-08-01] MEDS: KETOROLAC TROMETH 30 MG/ML 1ML VIAL IV PRN (20:54)
[2021-08-01 22:00] VITALS: BP 128/91
[2021-08-02] MEDS: VANCOMYCIN 1GM/250ML 250 ML IV SCH ×3 (00:40→17:52)
[2021-08-02] MEDS: CEFEPIME 1 GM in SODIUM CHL 0.9% 50 ML IV SCH ×2 (01:52→11:05)
[2021-08-02] MEDS: HYDROmorphone HCL 2 MG/ML VL IV PRN ×7 (02:09→22:42)
[2021-08-02 05:00] VITALS: BP 128/85
[2021-08-02] MEDS: DEXTROSE (50%) 50ML SYRG IV PRN (05:50)
[2021-08-02] MEDS: KETOROLAC TROMETH 30 MG/ML 1ML VIAL IV PRN (05:51)
[2021-08-02] MEDS: ACCU-CHEK COMFORT CURVE STRIP VI SCH ×4 (06:03→22:16)
[2021-08-02] MEDS: InsuLIN REG 1unit/0.01ml Soln (100units/ml) SC SCH ×4 (06:04→21:04)
[2021-08-02 07:15] LABS: Basophils # (auto) 0 10 ^3/uL (0-0.2); Eosinophils # (auto) 0.1 10 ^3/uL (0-0.8); Lymphocytes # (auto) 0.8 10 ^3/uL (0.4-5.4); Monocytes # (auto) 0.6 10 ^3/uL (0-1.3)
[2021-08-02 07:17] LABS: Basophils % (auto) 0.3 % (0.0-2.0); Eosinophils % (auto) 0.9 % (0.0-7.0); Hematocrit 27.9 % (41.0-53.0); Hemoglobin 9.2 g/dL (13.5-17.5); Lymphocytes % (auto) 11.5 % (10.0-50.0); Mean Corpuscular Hemoglobin 26.1 pg (28.0-32.0); Mean Corpuscular Hgb Conc. 32.8 g/dL (32.0-36.0); Mean Corpuscular Volume 79.5 fL (80.0-100.0); Monocytes % (auto) 7.9 % (0.0-12.0); Neutrophils # (auto) 5.7 10 ^3/uL (1.6-8.6); Neutrophils % (auto) 79.4 % (37.0-80.0); Red Blood Cells 3.52 10^6/uL (4.5-5.90); White Blood Cell 7.1 10^3/uL (4.4-10.8)
[2021-08-02 09:00] VITALS: BP 114/79
[2021-08-02] MEDS: GABAPENTIN 100 MG CAP PO SCH ×2 (09:21→20:58)
[2021-08-02] MEDS: PANTOPRAZOLE 40 MG/10 ML VIAL INJ IV SCH (09:21)
[2021-08-02] MEDS: HYDROcodone-ACET 7.5/325MG TAB PO PRN (09:21)
[2021-08-02] MEDS: INSULIN LANTUS (GLARGINE) 1 /0.01ml (100units/ml) SC SCH ×2 (09:28→21:08)
[2021-08-02 13:00] VITALS: BP 131/82
[2021-08-02 17:00] VITALS: BP 136/76
[2021-08-02] MEDS: ATORVASTATIN 20 MG TAB PO SCH (20:58)
[2021-08-02] MEDS: LORazepam 0.5 MG TAB PO PRN (20:59)
[2021-08-02 22:00] VITALS: BP 112/70
[2021-08-03] MEDS: VANCOMYCIN 1GM/250ML 250 ML IV SCH ×3 (01:21→17:00)
[2021-08-03] MEDS: HYDROmorphone HCL 2 MG/ML VL IV PRN ×9 (01:22→23:08)
[2021-08-03 04:00] VITALS: BP 131/67
[2021-08-03] MEDS: InsuLIN REG 1unit/0.01ml Soln (100units/ml) SC SCH ×4 (06:54→21:27)
[2021-08-03] MEDS: ACCU-CHEK COMFORT CURVE STRIP VI SCH ×4 (06:55→21:33)
[2021-08-03 07:40] LABS: Blood Urea Nitrogen 11 mg/dL (7-18); Chloride 105 mmol/L (98-107); Potassium 4.3 mmol/L (3.5-5.1); Sodium 138 mmol/L (136-145)
[2021-08-03 07:44] LABS: Anion Gap 10 (5-15); BUN/Creatinine Ratio 18.6; Calcium 8.3 mg/dL (8.5-10.1); Carbon Dioxide 23 mmol/L (21-32); GFR African American 199 mL/min; GFR Non-African American 164 mL/min; Glucose 142 mg/dL (74-106)
[2021-08-03 09:00] VITALS: BP 141/77
[2021-08-03] MEDS: PANTOPRAZOLE 40 MG/10 ML VIAL INJ IV SCH (10:49)
[2021-08-03] MEDS: GABAPENTIN 100 MG CAP PO SCH ×2 (10:49→21:33)
[2021-08-03] MEDS: INSULIN LANTUS (GLARGINE) 1 /0.01ml (100units/ml) SC SCH ×2 (10:55→21:33)
[2021-08-03 13:00] VITALS: BP 150/81
[2021-08-03 17:00] VITALS: BP 136/73
[2021-08-03] MEDS: LORazepam 0.5 MG TAB PO PRN (20:14)
[2021-08-03] MEDS: ATORVASTATIN 20 MG TAB PO SCH (21:33)
[2021-08-03 21:56] VITALS: BP 125/73
[2021-08-04] MEDS: VANCOMYCIN 1GM/250ML 250 ML IV SCH ×3 (01:00→16:37)
[2021-08-04] MEDS: HYDROmorphone HCL 2 MG/ML VL IV PRN ×7 (01:32→16:48)
[2021-08-04 05:33] VITALS: BP 143/83
[2021-08-04] MEDS: InsuLIN REG 1unit/0.01ml Soln (100units/ml) SC SCH ×3 (06:28→16:39)
[2021-08-04] MEDS: ACCU-CHEK COMFORT CURVE STRIP VI SCH ×3 (06:33→16:38)
[2021-08-04 08:43] VITALS: BP 133/89
[2021-08-04] MEDS: PANTOPRAZOLE 40 MG/10 ML VIAL INJ IV SCH (09:04)
[2021-08-04] MEDS: GABAPENTIN 100 MG CAP PO SCH (09:04)
[2021-08-04] MEDS: INSULIN LANTUS (GLARGINE) 1 /0.01ml (100units/ml) SC SCH (09:17)
[2021-08-04 12:47] VITALS: BP 129/81
[2021-08-04] MEDS: HYDROcodone-ACET 7.5/325MG TAB PO PRN (14:54)
[2021-08-04 17:00] VITALS: BP 145/83
[2021-08-04 17:40] VITALS: BP 129/87
== END 2021-08-04 18:20 | disposition home or self-care (01) | DRG 475 ==
LOC: ER 10:26 → OVERFLOW 17:58 → WEST WING 19:50
PROVIDERS: ADMIT Family Medicine; ATTEND Internal Medicine
PROC: 0Y6C0Z1 Detachment at Right Upper Leg, High, Open Approach (ICD-10-PCS; principal; 2021-08-01 13:01)
DX: T87.43 Infection of amputation stump, right lower extremity (principal); L03.115 Cellulitis of right lower limb; M86.8X6 Other osteomyelitis, lower leg; E44.1 Mild protein-calorie malnutrition; Y83.5 Amputation of limb(s) as the cause of abnormal reaction of the patient, or of later complication, without mention of misadventure at the time of the procedure; E11.65 Type 2 diabetes mellitus with hyperglycemia; E11.51 Type 2 diabetes mellitus with diabetic peripheral angiopathy without gangrene; B95.62 Methicillin resistant Staphylococcus aureus infection as the cause of diseases classified elsewhere; I12.9 Hypertensive chronic kidney disease with stage 1 through stage 4 chronic kidney disease, or unspecified chronic kidney disease; N18.9 Chronic kidney disease, unspecified; E11.22 Type 2 diabetes mellitus with diabetic chronic kidney disease; Z20.822 Contact with and (suspected) exposure to COVID-19; E11.69 Type 2 diabetes mellitus with other specified complication; Z79.4 Long term (current) use of insulin; Z89.511 Acquired absence of right leg below knee; Z89.611 Acquired absence of right leg above knee; Z83.3 Family history of diabetes mellitus; Z81.1 Family history of alcohol abuse and dependence; Z68.29 Body mass index [BMI] 29.0-29.9, adult
CPT/HCPCS: 36415; 71045; 73706; 73721; 80048; 80053; 80061; 80202; 81001; 82306; 82962; 83036; 83605; 84439; 84443; 85025; 85610; 85652; 86141; 86850; 86900; 86901; 87040; 87077; 87186; 87205; 87426; 93005; 96365; 96367; 96375; C9113; G0378; J1100; J1815; J1885; J2250; J2405; J2704; J3490

== ENCOUNTER 2021-08-23 13:19 | Emergency (ER) | payer MEDICARE, MEDICAID ==
[~2021-08-23] VITALS: Ht 30.5 cm; Wt 68.0 kg
[2021-08-23 15:03] LABS: Basophils # (auto) 0.1 10 ^3/uL (0-0.2); Eosinophils # (auto) 0 10 ^3/uL (0-0.8); Eosinophils % (auto) 0.4 % (0.0-7.0); Lymphocytes # (auto) 2.1 10 ^3/uL (0.4-5.4); Mean Corpuscular Hemoglobin 24.1 pg (28.0-32.0); Monocytes # (auto) 0.4 10 ^3/uL (0-1.3); Monocytes % (auto) 3.5 % (0.0-12.0); White Blood Cell 11.4 10^3/uL (4.4-10.8)
[2021-08-23 15:05] LABS: Basophils % (auto) 0.6 % (0.0-2.0); Hematocrit 36.5 % (41.0-53.0); Hemoglobin 11.5 g/dL (13.5-17.5); Lymphocytes % (auto) 18.4 % (10.0-50.0); Mean Corpuscular Hgb Conc. 31.5 g/dL (32.0-36.0); Mean Corpuscular Volume 76.4 fL (80.0-100.0); Neutrophils # (auto) 8.8 10 ^3/uL (1.6-8.6); Neutrophils % (auto) 77.1 % (37.0-80.0); Red Blood Cells 4.78 10^6/uL (4.5-5.90); Red Cell Distribution Width 16.8 % (11.8-14.3)
[2021-08-23 15:25] LABS: Calcium 9.6 mg/dL (8.5-10.1); Potassium 5.5 mmol/L (3.5-5.1)
[2021-08-23 15:31] LABS: Albumin 3.9 g/dL (3.4-5.0); BUN/Creatinine Ratio 36.2; Bilirubin, Total 0.2 mg/dL (0.2-1.0); Total Protein 8.2 g/dL (6.4-8.2)
[2021-08-23] MEDS ORDERED: SODIUM CHLORIDE 0.9% 1,000 ML IV ONE (15:45)
[2021-08-23] MEDS ORDERED: MORPHINE SULFATE 4 MG/ML SYR/VIAL IV ONE (19:45)
[2021-08-23] MEDS ORDERED: ONDANSETRON HCL 4 MG/2 ML VIAL IV ONE (19:45)
[2021-08-23 20:13] VITALS: BP 124/89
[2021-08-23] MEDS ORDERED: ONDANSETRON HCL 4 MG/2 ML VIAL IV PRN (22:00)
[2021-08-23] MEDS ORDERED: TEMAZEPAM 15 MG CAP PO PRN (22:00)
[2021-08-23] MEDS ORDERED: DEXTROSE (50%) 50ML SYRG IV PRN (22:00)
[2021-08-23] MEDS ORDERED: MORPHINE SULFATE 4 MG/ML SYR/VIAL IV PRN (22:00)
[2021-08-23] MEDS ORDERED: DOCUSATE SOD 100 MG CAP PO PRN (22:00)
[2021-08-23] MEDS ORDERED: HYDROcodone-ACET 5/325MG TAB PO PRN (22:00)
[2021-08-23] MEDS ORDERED: METOPROLOL TARTRATE 25 MG TAB PO SCH (22:00)
[2021-08-23] MEDS ORDERED: SODIUM CHLOR 0.9% PF (SALINE LOCK) 10ML VIAL/SYR IV SCH (22:00)
[2021-08-23] MEDS ORDERED: ACETAMINOPHEN 325 MG TAB PO PRN (22:00)
[2021-08-24] MEDS ORDERED: ACCU-CHEK COMFORT CURVE STRIP VI SCH
[2021-08-24] MEDS ORDERED: InsuLIN REG 1unit/0.01ml Soln (100units/ml) SC SCH
[2021-08-24] MEDS ORDERED: INSULIN LANTUS (GLARGINE) 1 /0.01ml (100units/ml) SC SCH (10:00)
[2021-08-24] MEDS ORDERED: ASPirin 81 mg TAB PO SCH (10:00)
[2021-08-24] MEDS ORDERED: FAMOTIDINE (10MG/ML) 2ML VL IV SCH (10:00)
== END 2021-08-23 23:59 | disposition home or self-care (01) ==
LOC: ER 13:19
DX: R07.89 Other chest pain (principal); R00.2 Palpitations; E87.5 Hyperkalemia; Z20.822 Contact with and (suspected) exposure to COVID-19
CPT/HCPCS: 36415; 71045; 80053; 83880; 85025; 87426; 93005; 96361; 96374; 96375; 99285; J2270; J2405; J7030

== ENCOUNTER 2021-09-13 15:30 | Emergency (ER) | payer MEDICARE, MEDICAID ==
[~2021-09-13] VITALS: Ht 152.4 cm; Wt 70.3 kg
[2021-09-13] MEDS ORDERED: HYDROmorphone HCL 2 MG/ML VL IM ONE (16:15)
[2021-09-13] MEDS ORDERED: SODIUM CHLORIDE 0.9% 1,000 ML IV ONE (16:15)
[2021-09-13 19:07] LABS: Basophils # (auto) 0.1 10 ^3/uL (0-0.2); Basophils % (auto) 0.4 % (0.0-2.0); Eosinophils # (auto) 0 10 ^3/uL (0-0.8); Eosinophils % (auto) 0.1 % (0.0-7.0); Hematocrit 34.8 % (41.0-53.0); Hemoglobin 10.9 g/dL (13.5-17.5); Lymphocytes # (auto) 3.7 10 ^3/uL (0.4-5.4); Lymphocytes % (auto) 29.1 % (10.0-50.0); Mean Corpuscular Hemoglobin 23.2 pg (28.0-32.0); Mean Corpuscular Hgb Conc. 31.3 g/dL (32.0-36.0); Monocytes # (auto) 0.7 10 ^3/uL (0-1.3); Monocytes % (auto) 5.6 % (0.0-12.0); Neutrophils # (auto) 8.3 10 ^3/uL (1.6-8.6); Neutrophils % (auto) 64.8 % (37.0-80.0); Red Blood Cells 4.69 10^6/uL (4.5-5.90); White Blood Cell 12.8 10^3/uL (4.4-10.8)
[2021-09-13 19:29] LABS: Potassium 4.3 mmol/L (3.5-5.1)
[2021-09-13 19:33] LABS: Albumin 3.6 g/dL (3.4-5.0); BUN/Creatinine Ratio 36.7; Calcium 9.1 mg/dL (8.5-10.1); Magnesium 2.6 mg/dL (1.6-2.6)
[2021-09-13 19:36] LABS: Bilirubin, Total 0.1 mg/dL (0.2-1.0); Total Protein 7.6 g/dL (6.4-8.2)
[2021-09-13 21:20] VITALS: BP 141/94
== END 2021-09-13 21:41 | disposition home or self-care (01) ==
LOC: ER 15:33
DX: E10.65 Type 1 diabetes mellitus with hyperglycemia (principal); G54.6 Phantom limb syndrome with pain; I10 Essential (primary) hypertension
CPT/HCPCS: 36415; 71045; 73552; 80053; 83735; 85025; 85652; 96360; 96372; 99284; J1170; J7030

== ENCOUNTER 2021-10-17 12:43 | Inpatient (IN) | payer MEDICARE, MEDICAID ==
[~2021-10-17] VITALS: Ht 152.4 cm; Wt 72.7 kg
[2021-10-17 14:17] LABS: Eosinophils # (auto) 0.1 10 ^3/uL (0-0.8); Hemoglobin 12.9 g/dL (13.5-17.5); Monocytes # (auto) 0.5 10 ^3/uL (0-1.3); Neutrophils # (auto) 4.5 10 ^3/uL (1.6-8.6); Red Cell Distribution Width 18.4 % (11.8-14.3)
[2021-10-17 14:19] LABS: Basophils # (auto) 0.1 10 ^3/uL (0-0.2); Basophils % (auto) 0.8 % (0.0-2.0); Hematocrit 39.7 % (41.0-53.0); Lymphocytes # (auto) 2.5 10 ^3/uL (0.4-5.4); Lymphocytes % (auto) 32.7 % (10.0-50.0); Mean Corpuscular Hemoglobin 24.4 pg (28.0-32.0); Mean Corpuscular Hgb Conc. 32.5 g/dL (32.0-36.0); Mean Corpuscular Volume 74.9 fL (80.0-100.0); Neutrophils % (auto) 58.5 % (37.0-80.0); White Blood Cell 7.7 10^3/uL (4.4-10.8)
[2021-10-17 14:34] LABS: INR 0.99 (0.9-1.15); Partial Thromboplastin Time 23.9 sec (23.6-33.0)
[2021-10-17 14:44] LABS: Chloride 108 mmol/L (98-107); Potassium 4.6 mmol/L (3.5-5.1); Sodium 136 mmol/L (136-145)
[2021-10-17 14:51] LABS: Alanine Aminotransferase 34 U/L (16-61); Albumin 3.9 g/dL (3.4-5.0); Alkaline Phosphatase 89 U/L (45-117); Anion Gap 3 (5-15); Aspartate Aminotransferase 22 U/L (15-37); BUN/Creatinine Ratio 32.5; Bilirubin, Total < 0.1 mg/dL (0.2-1.0); Blood Urea Nitrogen 25 mg/dL (7-18); CRP High Sensitivity 0.68 mg/dL (< 0.3); Calcium 9.4 mg/dL (8.5-10.1); Carbon Dioxide 25 mmol/L (21-32); Creatine Kinase IFCC 84 U/L (39-308); GFR African American 146 mL/min; GFR Non-African American 121 mL/min; Glucose 191 mg/dL (74-106); Total Protein 8.1 g/dL (6.4-8.2)
[2021-10-17] MEDS ORDERED: IOHEXOL 350 MG/ML 100ML IJ ONE (15:09)
[2021-10-17] MEDS ORDERED: SODIUM CHLORIDE 0.9% 1,000 ML IV ONE (18:15)
[2021-10-17] MEDS ORDERED: TEMAZEPAM 15 MG CAP PO PRN (19:00)
[2021-10-17] MEDS ORDERED: VANCOMYCIN PER PHARMACY 0 MG IV SCH (19:00)
[2021-10-17] MEDS ORDERED: ACETAMINOPHEN 325 MG TAB PO PRN (19:00)
[2021-10-17] MEDS ORDERED: DEXTROSE (50%) 50ML SYRG IV PRN (19:00)
[2021-10-17] MEDS ORDERED: cefTRIAXone 1GM/50ML D5W 50 ML IV ONE (20:45)
[2021-10-17] MEDS ORDERED: VANCOMYCIN 1GM/250ML 250 ML IV ONE (21:30)
[2021-10-17] MEDS: ACCU-CHEK COMFORT CURVE STRIP VI SCH (22:00)
[2021-10-17] MEDS: InsuLIN REG 1unit/0.01ml Soln (100units/ml) SC SCH (22:00)
[2021-10-17] MEDS: DULoxetine HCL 30 MG CAP PO SCH (22:00)
[2021-10-17] MEDS ORDERED: HYDR-4902 PO (23:14)
[2021-10-17] MEDS ORDERED: HYDR2TAB58 PO (23:14)
[2021-10-17] MEDS ORDERED: INSLISPI SC (23:15)
[2021-10-17] MEDS ORDERED: FERR27TA2 PO (23:18)
[2021-10-17] MEDS ORDERED: PREG150C PO (23:18)
[2021-10-17] MEDS ORDERED: METO25TA5 PO (23:18)
[2021-10-17] MEDS ORDERED: LISI-716 PO (23:18)
[2021-10-17] MEDS ORDERED: OXYB10GE PO (23:18)
[2021-10-17] MEDS ORDERED: CETI10TA2 PO (23:18)
[2021-10-17 23:30] VITALS: BP 91/63
[2021-10-17] MEDS: HYDROcodone-ACET 5/325MG TAB PO PRN (23:40)
[2021-10-18] MEDS: ACCU-CHEK COMFORT CURVE STRIP VI SCH ×4 (05:17→21:30)
[2021-10-18] MEDS: MORPHINE SULFATE 4 MG/ML SYR/VIAL IV PRN ×2 (05:18→11:20)
[2021-10-18] MEDS: ONDANSETRON HCL 4 MG/2 ML VIAL IV PRN ×2 (05:18→11:20)
[2021-10-18 05:57] LABS: Basophils # (auto) 0 10 ^3/uL (0-0.2); Basophils % (auto) 0.6 % (0.0-2.0); Eosinophils # (auto) 0.1 10 ^3/uL (0-0.8); Hemoglobin 11.6 g/dL (13.5-17.5); Lymphocytes # (auto) 1.8 10 ^3/uL (0.4-5.4); Monocytes # (auto) 0.5 10 ^3/uL (0-1.3); Nucleated Red Blood Cells % 0.1 %
[2021-10-18 05:58] VITALS: BP 115/71
[2021-10-18 05:59] LABS: Hematocrit 35.8 % (41.0-53.0); Lymphocytes % (auto) 36.6 % (10.0-50.0); Mean Corpuscular Hemoglobin 24.2 pg (28.0-32.0); Mean Corpuscular Hgb Conc. 32.4 g/dL (32.0-36.0); Mean Corpuscular Volume 74.7 fL (80.0-100.0); Monocytes % (auto) 9.6 % (0.0-12.0); Neutrophils # (auto) 2.5 10 ^3/uL (1.6-8.6); Neutrophils % (auto) 51.2 % (37.0-80.0); Red Blood Cells 4.79 10^6/uL (4.5-5.90); Red Cell Distribution Width 18.6 % (11.8-14.3); White Blood Cell 4.9 10^3/uL (4.4-10.8)
[2021-10-18 06:13] LABS: BUN/Creatinine Ratio 30.6; Calcium 8.8 mg/dL (8.5-10.1)
[2021-10-18] MEDS: InsuLIN REG 1unit/0.01ml Soln (100units/ml) SC SCH ×4 (07:00→21:30)
[2021-10-18 09:01] VITALS: BP 91/55
[2021-10-18] MEDS: LISINOPRIL 10 MG TAB PO SCH (10:00)
[2021-10-18] MEDS ORDERED: VANCOMYCIN 1GM/250ML 250 ML IV ONE (11:00)
[2021-10-18] MEDS: PANTOPRAZOLE 40 MG TAB PO SCH (11:36)
[2021-10-18 13:00] VITALS: BP 110/75
[2021-10-18] MEDS: HYDROcodone-ACET 5/325MG TAB PO PRN (15:19)
[2021-10-18] MEDS ORDERED: HYDROmorphone HCL 2 MG/ML VL IV PRN ×2 (16:00→16:15)
[2021-10-18] MEDS: HYDROmorphone HCL 2 MG/ML VL IV PRN ×2 (16:38→21:08)
[2021-10-18 17:00] VITALS: BP 116/71
[2021-10-18] MEDS: VANCOMYCIN 1GM/250ML 250 ML IV SCH (20:06)
[2021-10-18] MEDS: cefTRIAXone 1GM/50ML D5W 50 ML IV SCH (21:52)
[2021-10-18] MEDS: DULoxetine HCL 30 MG CAP PO SCH (21:53)
[2021-10-18 22:00] VITALS: BP 105/61
[2021-10-19] MEDS: HYDROmorphone HCL 2 MG/ML VL IV PRN ×5 (03:39→21:27)
[2021-10-19 05:00] VITALS: BP 110/62
[2021-10-19] MEDS: VANCOMYCIN 1GM/250ML 250 ML IV SCH ×2 (06:00→17:03)
[2021-10-19] MEDS: ACCU-CHEK COMFORT CURVE STRIP VI SCH ×4 (06:15→21:27)
[2021-10-19] MEDS: InsuLIN REG 1unit/0.01ml Soln (100units/ml) SC SCH ×4 (06:15→21:27)
[2021-10-19 07:13] LABS: Basophils # (auto) 0 10 ^3/uL (0-0.2); Hematocrit 32.7 % (41.0-53.0); Hemoglobin 10.6 g/dL (13.5-17.5); Lymphocytes # (auto) 1.8 10 ^3/uL (0.4-5.4); Mean Corpuscular Hemoglobin 24.3 pg (28.0-32.0); Mean Corpuscular Hgb Conc. 32.4 g/dL (32.0-36.0); Monocytes # (auto) 0.4 10 ^3/uL (0-1.3); Nucleated Red Blood Cells % 0.1 %; Red Blood Cells 4.36 10^6/uL (4.5-5.90)
[2021-10-19 07:17] LABS: Basophils % (auto) 0.8 % (0.0-2.0); Eosinophils # (auto) 0.1 10 ^3/uL (0-0.8); Eosinophils % (auto) 2.7 % (0.0-7.0); Lymphocytes % (auto) 33.6 % (10.0-50.0); Monocytes % (auto) 7.9 % (0.0-12.0); Neutrophils # (auto) 2.9 10 ^3/uL (1.6-8.6); Red Cell Distribution Width 18.7 % (11.8-14.3); White Blood Cell 5.2 10^3/uL (4.4-10.8)
[2021-10-19 07:18] LABS: Calcium 8.7 mg/dL (8.5-10.1); Potassium 4.1 mmol/L (3.5-5.1)
[2021-10-19 07:20] LABS: BUN/Creatinine Ratio 30.9
[2021-10-19 08:38] VITALS: BP 123/73
[2021-10-19 08:39] VITALS: BP 123/73
[2021-10-19] MEDS: PANTOPRAZOLE 40 MG TAB PO SCH (09:20)
[2021-10-19] MEDS: LISINOPRIL 10 MG TAB PO SCH (09:21)
[2021-10-19 13:03] VITALS: BP_SYST 120; BP_SYST 123; BP_DIAS 73; BP_DIAS 79
[2021-10-19] MEDS ORDERED: ERGOCALCIFEROL 50,000 UNIT(1.25MG) CAP PO SCH (14:00)
[2021-10-19 16:43] VITALS: BP 118/71
[2021-10-19] MEDS ORDERED: LIDOCAINE 1% (LOCAL ANESTH.) PF 5ml SDV ID ONE (18:30)
[2021-10-19] MEDS: SODIUM CHLOR 0.9% PF (SALINE LOCK) 10ML VIAL/SYR IV SCH (21:27)
[2021-10-19] MEDS: DULoxetine HCL 30 MG CAP PO SCH (21:27)
[2021-10-19] MEDS: metroNIDAZOLE 500 MG TAB PO SCH (21:27)
[2021-10-19] MEDS: cefTRIAXone 1GM/50ML D5W 50 ML IV SCH (21:27)
[2021-10-19 22:00] VITALS: BP 120/76
[2021-10-20] MEDS: VANCOMYCIN 1GM/250ML 250 ML IV SCH ×3 (01:56→21:15)
[2021-10-20] MEDS: HYDROmorphone HCL 2 MG/ML VL IV PRN ×7 (03:19→21:21)
[2021-10-20 05:00] VITALS: BP 117/79
[2021-10-20] MEDS: metroNIDAZOLE 500 MG TAB PO SCH ×3 (06:07→21:14)
[2021-10-20] MEDS: ACCU-CHEK COMFORT CURVE STRIP VI SCH ×4 (06:08→22:00)
[2021-10-20] MEDS: InsuLIN REG 1unit/0.01ml Soln (100units/ml) SC SCH ×4 (06:50→22:00)
[2021-10-20 09:07] VITALS: BP 132/73
[2021-10-20] MEDS: PANTOPRAZOLE 40 MG TAB PO SCH (10:00)
[2021-10-20] MEDS: SODIUM CHLOR 0.9% PF (SALINE LOCK) 10ML VIAL/SYR IV SCH ×2 (10:00→21:14)
[2021-10-20] MEDS: LISINOPRIL 10 MG TAB PO SCH (10:00)
[2021-10-20 12:40] VITALS: BP 104/67
[2021-10-20 16:55] VITALS: BP 108/69
[2021-10-20] MEDS: cefTRIAXone 1GM/50ML D5W 50 ML IV SCH (21:13)
[2021-10-20] MEDS: DULoxetine HCL 30 MG CAP PO SCH (21:14)
[2021-10-20 23:45] VITALS: BP 103/66
[2021-10-21] MEDS: HYDROmorphone HCL 2 MG/ML VL IV PRN ×5 (03:28→21:16)
[2021-10-21 05:16] VITALS: BP 99/58
[2021-10-21] MEDS: metroNIDAZOLE 500 MG TAB PO SCH ×3 (06:38→21:10)
[2021-10-21] MEDS: InsuLIN REG 1unit/0.01ml Soln (100units/ml) SC SCH ×4 (06:39→21:32)
[2021-10-21] MEDS: ACCU-CHEK COMFORT CURVE STRIP VI SCH ×4 (06:39→21:33)
[2021-10-21] MEDS: VANCOMYCIN 1GM/250ML 250 ML IV SCH (08:08)
[2021-10-21 09:00] VITALS: BP 102/65
[2021-10-21] MEDS: PANTOPRAZOLE 40 MG TAB PO SCH (10:00)
[2021-10-21] MEDS: SODIUM CHLOR 0.9% PF (SALINE LOCK) 10ML VIAL/SYR IV SCH ×2 (10:00→21:09)
[2021-10-21] MEDS: LISINOPRIL 10 MG TAB PO SCH (10:00)
[2021-10-21 12:00] VITALS: BP 113/69
[2021-10-21 16:00] VITALS: BP 94/55
[2021-10-21] MEDS: cefTRIAXone 1GM/50ML D5W 50 ML IV SCH (21:09)
[2021-10-21] MEDS: DULoxetine HCL 30 MG CAP PO SCH (21:10)
[2021-10-21 22:11] VITALS: BP 96/54
[2021-10-22] MEDS: HYDROmorphone HCL 2 MG/ML VL IV PRN ×4 (01:05→17:25)
[2021-10-22 05:18] VITALS: BP 96/59
[2021-10-22] MEDS: metroNIDAZOLE 500 MG TAB PO SCH ×2 (05:51→14:00)
[2021-10-22 05:56] LABS: Basophils # (auto) 0 10 ^3/uL (0-0.2); Eosinophils # (auto) 0.1 10 ^3/uL (0-0.8); Monocytes # (auto) 0.4 10 ^3/uL (0-1.3); Neutrophils # (auto) 2.2 10 ^3/uL (1.6-8.6); Nucleated Red Blood Cells % 0.1 %; White Blood Cell 4.4 10^3/uL (4.4-10.8)
[2021-10-22 05:58] LABS: Basophils % (auto) 0.6 % (0.0-2.0); Hematocrit 33.1 % (41.0-53.0); Hemoglobin 10.9 g/dL (13.5-17.5); Lymphocytes # (auto) 1.6 10 ^3/uL (0.4-5.4); Lymphocytes % (auto) 37.1 % (10.0-50.0); Mean Corpuscular Hemoglobin 24.8 pg (28.0-32.0); Mean Corpuscular Volume 75.1 fL (80.0-100.0); Monocytes % (auto) 8.7 % (0.0-12.0); Neutrophils % (auto) 50.6 % (37.0-80.0); Red Blood Cells 4.41 10^6/uL (4.5-5.90); Red Cell Distribution Width 19.4 % (11.8-14.3)
[2021-10-22] MEDS: ACCU-CHEK COMFORT CURVE STRIP VI SCH ×3 (06:39→17:26)
[2021-10-22] MEDS: InsuLIN REG 1unit/0.01ml Soln (100units/ml) SC SCH ×3 (07:00→17:00)
[2021-10-22 09:00] VITALS: BP 119/74
[2021-10-22] MEDS: PANTOPRAZOLE 40 MG TAB PO SCH (09:28)
[2021-10-22] MEDS: LISINOPRIL 10 MG TAB PO SCH (09:28)
[2021-10-22] MEDS: SODIUM CHLOR 0.9% PF (SALINE LOCK) 10ML VIAL/SYR IV SCH (09:32)
[2021-10-22] MEDS: HYDROcodone-ACET 5/325MG TAB PO PRN (10:38)
[2021-10-22 12:16] VITALS: BP 121/79
[2021-10-22 13:00] VITALS: BP 102/61
[2021-10-22] MEDS ORDERED: ERGO1CAP23 PO (14:40)
[2021-10-22] MEDS ORDERED: MET500T PO (14:40)
[2021-10-22] MEDS ORDERED: VANCOMYCIN 1GM/250ML 250 ML IV SCH (16:00)
[2021-10-22 17:00] VITALS: BP 114/73
[2021-10-22 17:25] VITALS: BP 118/70
== END 2021-10-22 19:48 | disposition home health service (06) | DRG 565 ==
LOC: ER 12:47 → OVERFLOW 18:51 → WEST WING 21:50
PROVIDERS: ADMIT Nurse Practitioner; ATTEND Internal Medicine
PROC: 05HB33Z Insertion of Infusion Device into Right Basilic Vein, Percutaneous Approach (ICD-10-PCS; 2021-10-17)
PROC: B54MZZA Ultrasonography of Right Upper Extremity Veins, Guidance (ICD-10-PCS; 2021-10-17)
PROC: 02HV33Z Insertion of Infusion Device into Superior Vena Cava, Percutaneous Approach (ICD-10-PCS; principal; 2021-10-19)
PROC: B548ZZA Ultrasonography of Superior Vena Cava, Guidance (ICD-10-PCS; 2021-10-19)
DX: T87.43 Infection of amputation stump, right lower extremity (principal); E44.0 Moderate protein-calorie malnutrition; L02.415 Cutaneous abscess of right lower limb; M86.8X6 Other osteomyelitis, lower leg; Y83.5 Amputation of limb(s) as the cause of abnormal reaction of the patient, or of later complication, without mention of misadventure at the time of the procedure; I10 Essential (primary) hypertension; Z20.822 Contact with and (suspected) exposure to COVID-19; E55.9 Vitamin D deficiency, unspecified; E11.69 Type 2 diabetes mellitus with other specified complication; Z83.3 Family history of diabetes mellitus; Z89.512 Acquired absence of left leg below knee; Z89.611 Acquired absence of right leg above knee; Z68.31 Body mass index [BMI] 31.0-31.9, adult; Y92.89 Other specified places as the place of occurrence of the external cause
CPT/HCPCS: 36415; 36569; 71045; 73701; 80048; 80053; 80202; 82306; 82550; 82565; 82962; 83036; 83605; 85025; 85610; 85652; 85730; 86141; 86850; 86900; 86901; 87040; 87081; 87426; 93005; 96361; 96365; G0378; J0696; J1815; J2405

== ENCOUNTER 2021-11-10 13:26 | Inpatient (IN) | payer MEDICARE, MEDICAID ==
[~2021-11-10] VITALS: Ht 188 cm; Wt 138.7 kg
[~2021-11-10 13:26] MED LIST changes: +CETI10TA2 PO; -DULO20CA PO; +ERGO1CAP23 PO; +FERR27TA2 PO; +HYDR-4902 PO; -INSLANTI SC; +LISI-716 PO; -LISI2.5T47 PO; -LISI20TA28 PO; +MET500T PO; +METO25TA5 PO; +OXYB10GE PO; +PREG150C PO
[2021-11-10] MEDS ORDERED: MORPHINE SULFATE 4 MG/ML SYR/VIAL IV ONE (14:45)
[2021-11-10] MEDS ORDERED: ONDANSETRON HCL 4 MG/2 ML VIAL IV ONE (14:45)
[2021-11-10 15:42] LABS: Basophils # (auto) 0 10 ^3/uL (0-0.2); Eosinophils # (auto) 0.2 10 ^3/uL (0-0.8); Hemoglobin 11.2 g/dL (13.5-17.5); Lymphocytes # (auto) 1.6 10 ^3/uL (0.4-5.4); Monocytes # (auto) 0.7 10 ^3/uL (0-1.3)
[2021-11-10 15:43] LABS: Basophils % (auto) 0.5 % (0.0-2.0); Eosinophils % (auto) 3.8 % (0.0-7.0); Hematocrit 34.4 % (41.0-53.0); Lymphocytes % (auto) 31.8 % (10.0-50.0); Mean Corpuscular Hgb Conc. 32.5 g/dL (32.0-36.0); Mean Corpuscular Volume 76.9 fL (80.0-100.0); Monocytes % (auto) 12.9 % (0.0-12.0); Neutrophils # (auto) 2.6 10 ^3/uL (1.6-8.6); Red Blood Cells 4.47 10^6/uL (4.5-5.90); White Blood Cell 5.1 10^3/uL (4.4-10.8)
[2021-11-10 15:48] LABS: Red Cell Distribution Width 23.1 % (11.8-14.3)
[2021-11-10 16:10] LABS: Albumin 3.4 g/dL (3.4-5.0); Calcium 9.5 mg/dL (8.5-10.1); Potassium 4.3 mmol/L (3.5-5.1)
[2021-11-10 16:14] LABS: BUN/Creatinine Ratio 21.8; Bilirubin, Total 0.2 mg/dL (0.2-1.0); Total Protein 7.2 g/dL (6.4-8.2)
[2021-11-10] MEDS ORDERED: HYDROmorphone HCL 2 MG/ML VL IV ONE (17:30)
[2021-11-10] MEDS ORDERED: HYDROcodone-ACET 10/325MG TAB PO ONE (20:30)
[2021-11-10] MEDS ORDERED: DEXTROSE (50%) 50ML SYRG IV PRN (23:30)
[2021-11-10] MEDS ORDERED: MORPHINE SULFATE 4 MG/ML SYR/VIAL IV PRN (23:45)
[2021-11-10] MEDS ORDERED: ONDANSETRON HCL 4 MG/2 ML VIAL IV PRN (23:45)
[2021-11-10] MEDS ORDERED: ACETAMINOPHEN 325 MG TAB PO PRN (23:45)
[2021-11-11] MEDS: metroNIDAZOLE 500 MG TAB PO SCH ×4 (01:49→21:30)
[2021-11-11 03:18] VITALS: BP 103/65
[2021-11-11 05:00] VITALS: BP 88/50
[2021-11-11] MEDS: HYDROcodone-ACET 5/325MG TAB PO SCH ×2 (06:00)
[2021-11-11] MEDS: ACCU-CHEK COMFORT CURVE STRIP VI SCH ×4 (06:25→21:33)
[2021-11-11] MEDS: InsuLIN REG 1unit/0.01ml Soln (100units/ml) SC SCH ×4 (06:26→21:38)
[2021-11-11 08:00] VITALS: BP 110/67
[2021-11-11 08:10] LABS: Basophils # (auto) 0 10 ^3/uL (0-0.2); Hematocrit 34.6 % (41.0-53.0); White Blood Cell 4.2 10^3/uL (4.4-10.8)
[2021-11-11 08:12] LABS: Basophils % (auto) 0.9 % (0.0-2.0); Eosinophils # (auto) 0.2 10 ^3/uL (0-0.8); Eosinophils % (auto) 4.7 % (0.0-7.0); Hemoglobin 11.3 g/dL (13.5-17.5); Lymphocytes # (auto) 1.2 10 ^3/uL (0.4-5.4); Mean Corpuscular Hemoglobin 25.3 pg (28.0-32.0); Mean Corpuscular Hgb Conc. 32.5 g/dL (32.0-36.0); Mean Corpuscular Volume 77.8 fL (80.0-100.0); Monocytes # (auto) 0.6 10 ^3/uL (0-1.3); Monocytes % (auto) 14.7 % (0.0-12.0); Neutrophils # (auto) 2.2 10 ^3/uL (1.6-8.6); Neutrophils % (auto) 50.7 % (37.0-80.0); Nucleated Red Blood Cells % 0.1 %; Red Blood Cells 4.45 10^6/uL (4.5-5.90)
[2021-11-11 08:17] LABS: Red Cell Distribution Width 23.3 % (11.8-14.3)
[2021-11-11 08:20] LABS: Albumin 2.9 g/dL (3.4-5.0); Calcium 8.5 mg/dL (8.5-10.1); Potassium 4.1 mmol/L (3.5-5.1)
[2021-11-11 08:24] LABS: BUN/Creatinine Ratio 18.4; Bilirubin, Total 0.2 mg/dL (0.2-1.0); Total Protein 6.2 g/dL (6.4-8.2)
[2021-11-11] MEDS ORDERED: VANCOMYCIN PER PHARMACY 0 MG IV SCH (08:30)
[2021-11-11] MEDS ORDERED: VANCOMYCIN 1GM/250ML 250 ML IV ONE (08:45)
[2021-11-11 12:00] VITALS: BP 95/58
[2021-11-11] MEDS: FAMOTIDINE 20 MG TAB PO SCH (12:33)
[2021-11-11] MEDS: PREGABALIN CAPSULE 75 MG CAP PO SCH ×2 (12:33→21:28)
[2021-11-11] MEDS: METOPROLOL TARTRATE 25 MG TAB PO SCH ×2 (12:33→21:29)
[2021-11-11] MEDS: LISINOPRIL 10 MG TAB PO SCH (12:34)
[2021-11-11] MEDS: ENOXAPARIN SOD 40 MG/0.4 ML SYRINGE SC SCH (12:34)
[2021-11-11] MEDS: CEFTRIAXONE SODIUM 2 GM in D5W 5% 50 ML IV SCH (15:00)
[2021-11-11 17:00] VITALS: BP 90/56
[2021-11-11] MEDS: HYDROmorphone HCL 2 MG/ML VL IV PRN ×2 (18:43→18:50)
[2021-11-11 21:48] VITALS: BP 105/61
[2021-11-11] MEDS: VANCOMYCIN 1GM/250ML 250 ML IV SCH (23:13)
[2021-11-12] MEDS: HYDROmorphone HCL 2 MG/ML VL IV PRN ×4 (00:34→19:45)
[2021-11-12 04:55] VITALS: BP 95/60
[2021-11-12] MEDS: metroNIDAZOLE 500 MG TAB PO SCH ×3 (05:33→22:35)
[2021-11-12] MEDS: ACCU-CHEK COMFORT CURVE STRIP VI SCH ×4 (06:06→22:36)
[2021-11-12] MEDS: InsuLIN REG 1unit/0.01ml Soln (100units/ml) SC SCH ×4 (06:06→22:38)
[2021-11-12 08:00] VITALS: BP 107/66
[2021-11-12] MEDS: CEFTRIAXONE SODIUM 2 GM in D5W 5% 50 ML IV SCH (10:00)
[2021-11-12] MEDS: PREGABALIN CAPSULE 75 MG CAP PO SCH ×2 (10:27→22:36)
[2021-11-12] MEDS: VANCOMYCIN 1GM/250ML 250 ML IV SCH (10:27)
[2021-11-12] MEDS: LISINOPRIL 10 MG TAB PO SCH (10:28)
[2021-11-12] MEDS: METOPROLOL TARTRATE 25 MG TAB PO SCH ×2 (10:28→22:36)
[2021-11-12] MEDS: FAMOTIDINE 20 MG TAB PO SCH (10:28)
[2021-11-12] MEDS: ENOXAPARIN SOD 40 MG/0.4 ML SYRINGE SC SCH (10:28)
[2021-11-12 12:00] VITALS: BP 105/71
[2021-11-12] MEDS ORDERED: LORazepam 2MG/ML-1ML VIAL ONE (12:10)
[2021-11-12] MEDS ORDERED: HYDR-4798 PO (13:49)
[2021-11-12] MEDS ORDERED: OXYB5TAB24 PO (13:49)
[2021-11-12] MEDS ORDERED: INSU100I49 SC (13:49)
[2021-11-12] MEDS ORDERED: FER325T PO (13:49)
[2021-11-12 16:00] VITALS: BP 105/63
[2021-11-12 20:00] VITALS: BP 114/63
[2021-11-12 23:28] VITALS: BP 114/63
[2021-11-13] MEDS: HYDROmorphone HCL 2 MG/ML VL IV PRN ×2 (02:06→09:53)
[2021-11-13 05:00] VITALS: BP 117/65
[2021-11-13] MEDS ORDERED: VANCOMYCIN 1GM/250ML 250 ML IV SCH (05:00)
[2021-11-13 05:06] LABS: Basophils # (auto) 0 10 ^3/uL (0-0.2); Eosinophils # (auto) 0.2 10 ^3/uL (0-0.8); Eosinophils % (auto) 5.6 % (0.0-7.0); Hematocrit 35.3 % (41.0-53.0); Hemoglobin 11.6 g/dL (13.5-17.5); Lymphocytes # (auto) 1.4 10 ^3/uL (0.4-5.4); Lymphocytes % (auto) 41.4 % (10.0-50.0); Mean Corpuscular Hemoglobin 25.4 pg (28.0-32.0); Mean Corpuscular Hgb Conc. 32.7 g/dL (32.0-36.0); Mean Corpuscular Volume 77.5 fL (80.0-100.0); Monocytes # (auto) 0.5 10 ^3/uL (0-1.3); Monocytes % (auto) 13.9 % (0.0-12.0); Neutrophils # (auto) 1.3 10 ^3/uL (1.6-8.6); Neutrophils % (auto) 38.1 % (37.0-80.0); Red Blood Cells 4.56 10^6/uL (4.5-5.90); Red Cell Distribution Width 22.4 % (11.8-14.3); White Blood Cell 3.5 10^3/uL (4.4-10.8)
[2021-11-13 05:21] LABS: Calcium 9.1 mg/dL (8.5-10.1); Potassium 4.8 mmol/L (3.5-5.1)
[2021-11-13] MEDS: ACCU-CHEK COMFORT CURVE STRIP VI SCH ×2 (06:28→11:30)
[2021-11-13] MEDS: metroNIDAZOLE 500 MG TAB PO SCH (06:28)
[2021-11-13] MEDS: InsuLIN REG 1unit/0.01ml Soln (100units/ml) SC SCH ×2 (06:35→12:24)
[2021-11-13 08:00] VITALS: BP 118/71
[2021-11-13] MEDS: CEFTRIAXONE SODIUM 2 GM in D5W 5% 50 ML IV SCH (09:53)
[2021-11-13] MEDS: METOPROLOL TARTRATE 25 MG TAB PO SCH (09:53)
[2021-11-13] MEDS: PREGABALIN CAPSULE 75 MG CAP PO SCH (09:53)
[2021-11-13] MEDS: LISINOPRIL 10 MG TAB PO SCH (09:53)
[2021-11-13] MEDS: ENOXAPARIN SOD 40 MG/0.4 ML SYRINGE SC SCH (09:54)
[2021-11-13] MEDS ORDERED: HYDR2TAB58 PO (10:26)
[2021-11-13 12:00] VITALS: BP 100/69
== END 2021-11-13 14:15 | disposition home health service (06) | DRG 565 ==
LOC: ER 13:26 → OVERFLOW 23:32 → CENTRAL 11-11 01:53
PROVIDERS: ADMIT Internal Medicine; ATTEND Family Medicine
DX: T87.43 Infection of amputation stump, right lower extremity (principal); M86.8X6 Other osteomyelitis, lower leg; L02.415 Cutaneous abscess of right lower limb; E11.40 Type 2 diabetes mellitus with diabetic neuropathy, unspecified; I10 Essential (primary) hypertension; G89.29 Other chronic pain; E11.21 Type 2 diabetes mellitus with diabetic nephropathy; E11.69 Type 2 diabetes mellitus with other specified complication; E55.9 Vitamin D deficiency, unspecified; Z20.822 Contact with and (suspected) exposure to COVID-19; Y83.5 Amputation of limb(s) as the cause of abnormal reaction of the patient, or of later complication, without mention of misadventure at the time of the procedure; Z96.41 Presence of insulin pump (external) (internal); M54.9 Dorsalgia, unspecified; Z79.4 Long term (current) use of insulin; Z82.49 Family history of ischemic heart disease and other diseases of the circulatory system; Z83.3 Family history of diabetes mellitus; Z89.611 Acquired absence of right leg above knee; Z89.512 Acquired absence of left leg below knee; Z88.5 Allergy status to narcotic agent
CPT/HCPCS: 36415; 73700; 73721; 80048; 80053; 80202; 82565; 82962; 83605; 85025; 85652; 87040; 87081; 93970; 96374; 96375; G0378; J0696; J1815; J2405; J7060

== ENCOUNTER 2021-12-06 09:40 | Inpatient (IN) | payer OTHER, MEDICAID ==
[~2021-12-06] VITALS: Ht 152.4 cm; Wt 68.5 kg
[~2021-12-06 09:40] MED LIST changes: +FER325T PO; -FERR27TA2 PO; +HYDR-4798 PO; -HYDR-4902 PO; -INSLISPI SC; +INSU100I49 SC; -OXYB10GE PO; +OXYB5TAB24 PO
[2021-12-06] MEDS ORDERED: HYDROmorphone HCL 2 MG/ML VL ONE (09:49)
[2021-12-06] MEDS ORDERED: HYDROmorphone HCL 2 MG/ML VL IV ONE ×3 (10:00→21:30)
[2021-12-06 10:37] LABS: Eosinophils # (auto) 0 10 ^3/uL (0-0.8); Mean Corpuscular Hgb Conc. 32.3 g/dL (32.0-36.0); Monocytes # (auto) 1.8 10 ^3/uL (0-1.3); Monocytes % (auto) 11.5 % (0.0-12.0); Neutrophils # (auto) 12.3 10 ^3/uL (1.6-8.6)
[2021-12-06 10:38] LABS: Basophils # (auto) 0.1 10 ^3/uL (0-0.2); Basophils % (auto) 0.4 % (0.0-2.0); Hematocrit 36.3 % (41.0-53.0); Hemoglobin 11.7 g/dL (13.5-17.5); Lymphocytes # (auto) 1.3 10 ^3/uL (0.4-5.4); Lymphocytes % (auto) 8.2 % (10.0-50.0); Mean Corpuscular Volume 77.5 fL (80.0-100.0); Neutrophils % (auto) 79.9 % (37.0-80.0); Red Blood Cells 4.68 10^6/uL (4.5-5.90); White Blood Cell 15.4 10^3/uL (4.4-10.8)
[2021-12-06 10:51] LABS: Albumin 2.8 g/dL (3.4-5.0); Calcium 8.4 mg/dL (8.5-10.1); Magnesium 2.1 mg/dL (1.6-2.6)
[2021-12-06 10:55] LABS: BUN/Creatinine Ratio 33.3; Bilirubin, Total 0.5 mg/dL (0.2-1.0); Total Protein 7.5 g/dL (6.4-8.2)
[2021-12-06 11:46] LABS: Lactic Acid w/Reflex 3.2 mmol/L (0.4-2.0)
[2021-12-06] MEDS ORDERED: SODIUM CHLORIDE 0.9% 500 ML IV ONE (12:00)
[2021-12-06] MEDS ORDERED: PIPERACILLIN-TAZOB 3.375GM 100 ML IV ONE (12:00)
[2021-12-06] MEDS ORDERED: VANCOMYCIN 1GM/250ML 250 ML IV ONE (12:00)
[2021-12-06] MEDS ORDERED: ONDANSETRON HCL 4 MG/2 ML VIAL IV ONE (13:15)
[2021-12-06] MEDS ORDERED: SODIUM CHLORIDE 0.9% 2,000 ML IV ONE (13:45)
[2021-12-06] MEDS ORDERED: IOHEXOL 300 MG/ML 100ML BOTTLE IJ ONE (15:03)
[2021-12-06] MEDS ORDERED: ERTAPENEM SOD INJ 1 GM in SODIUM CHL 0.9% 50 ML IV ONE (16:00)
[2021-12-06] MEDS ORDERED: VANCOMYCIN PER PHARMACY 0 MG IV SCH ×2 (16:00)
[2021-12-06] MEDS ORDERED: ACETAMINOPHEN 325 MG TAB PO PRN (16:00)
[2021-12-06] MEDS ORDERED: HYDROcodone-ACET 5/325MG TAB PO PRN (16:00)
[2021-12-06] MEDS ORDERED: ACETAMINOPHEN 500 MG TAB PO ONE (16:00)
[2021-12-06 18:30] VITALS: BP 107/66
[2021-12-06] MEDS ORDERED: DEXTROSE (50%) 50ML SYRG IV ONE (20:00)
[2021-12-06] MEDS ORDERED: DEXTROSE (50%) 50ML SYRG IV PRN (20:15)
[2021-12-06] MEDS: HYDROmorphone HCL 2 MG TAB PO SCH (21:57)
[2021-12-06] MEDS: InsuLIN REG 1unit/0.01ml Soln (100units/ml) SC SCH (21:57)
[2021-12-06] MEDS: ACCU-CHEK COMFORT CURVE STRIP VI SCH (21:58)
[2021-12-06 21:59] VITALS: BP 115/74
[2021-12-06] MEDS ORDERED: ACCU-CHEK COMFORT CURVE STRIP VI ONE (22:00)
[2021-12-06] MEDS ORDERED: InsuLIN REG 1unit/0.01ml Soln (100units/ml) SC ONE (22:00)
[2021-12-07] MEDS: ONDANSETRON HCL 4 MG/2 ML VIAL IV PRN ×4 (00:55→22:00)
[2021-12-07] MEDS: InsuLIN REG 1unit/0.01ml Soln (100units/ml) SC SCH ×5 (01:07→21:58)
[2021-12-07] MEDS ORDERED: HYDROmorphone HCL 2 MG/ML VL IV ONE (02:00)
[2021-12-07] MEDS ORDERED: INSULIN LANTUS (GLARGINE) 1 /0.01ml (100units/ml) SC ONE (02:00)
[2021-12-07] MEDS: VANCOMYCIN 1GM/250ML 250 ML IV SCH ×2 (03:10→18:00)
[2021-12-07 05:58] VITALS: BP 116/64
[2021-12-07] MEDS: ACCU-CHEK COMFORT CURVE STRIP VI SCH ×3 (06:38→17:32)
[2021-12-07 09:00] VITALS: BP 126/72
[2021-12-07] MEDS ORDERED: ERTAPENEM SOD INJ 1 GM in SODIUM CHL 0.9% 50 ML IV SCH (10:00)
[2021-12-07] MEDS: HYDROmorphone HCL 2 MG TAB PO SCH (11:58)
[2021-12-07 13:00] VITALS: BP 107/59
[2021-12-07 17:00] VITALS: BP 126/73
[2021-12-07] MEDS: HYDROmorphone HCL 2 MG/ML VL IV PRN ×2 (17:40→21:49)
[2021-12-07] MEDS ORDERED: INSULIN LANTUS (GLARGINE) 1 /0.01ml (100units/ml) SC SCH (18:00)
[2021-12-07 19:30] VITALS: BP 119/61
[2021-12-07] MEDS ORDERED: HYDROmorphone HCL 2 MG TAB PO SCH (22:00)
[2021-12-07 22:16] VITALS: BP 119/67
[2021-12-08] MEDS: HYDROmorphone HCL 2 MG/ML VL IV PRN ×6 (01:51→23:53)
[2021-12-08 05:03] VITALS: BP 118/68
[2021-12-08] MEDS: InsuLIN REG 1unit/0.01ml Soln (100units/ml) SC SCH ×4 (06:47→21:45)
[2021-12-08 10:30] LABS: Basophils # (auto) 0 10 ^3/uL (0-0.2); Eosinophils # (auto) 0 10 ^3/uL (0-0.8); Eosinophils % (auto) 0.2 % (0.0-7.0); Nucleated Red Blood Cells % 0.1 %
[2021-12-08 10:32] LABS: Basophils % (auto) 0.4 % (0.0-2.0); Hematocrit 33.4 % (41.0-53.0); Lymphocytes # (auto) 1.4 10 ^3/uL (0.4-5.4); Lymphocytes % (auto) 15.1 % (10.0-50.0); Mean Corpuscular Hemoglobin 25.5 pg (28.0-32.0); Mean Corpuscular Hgb Conc. 33.1 g/dL (32.0-36.0); Monocytes # (auto) 0.9 10 ^3/uL (0-1.3); Monocytes % (auto) 9.5 % (0.0-12.0); Neutrophils # (auto) 6.7 10 ^3/uL (1.6-8.6); Neutrophils % (auto) 74.8 % (37.0-80.0); Red Blood Cells 4.34 10^6/uL (4.5-5.90); Red Cell Distribution Width 18.8 % (11.8-14.3)
[2021-12-08 10:34] LABS: Calcium 8.5 mg/dL (8.5-10.1); Magnesium 2.1 mg/dL (1.6-2.6); Potassium 4.3 mmol/L (3.5-5.1)
[2021-12-08] MEDS: ACCU-CHEK COMFORT CURVE STRIP VI SCH ×3 (12:07→22:00)
[2021-12-08 13:00] VITALS: BP 124/82
[2021-12-08] MEDS: VANCOMYCIN 1GM/250ML 250 ML IV SCH (13:08)
[2021-12-08 17:39] VITALS: BP 127/79
[2021-12-08 20:30] VITALS: BP 108/74
[2021-12-08 21:48] VITALS: BP 108/74
[2021-12-09] MEDS: VANCOMYCIN 1GM/250ML 250 ML IV SCH ×2 (00:01→12:55)
[2021-12-09] MEDS: HYDROmorphone HCL 2 MG/ML VL IV PRN ×5 (04:11→21:35)
[2021-12-09 04:53] VITALS: BP 124/74
[2021-12-09 06:00] LABS: Basophils # (auto) 0 10 ^3/uL (0-0.2); Eosinophils # (auto) 0.1 10 ^3/uL (0-0.8); Lymphocytes # (auto) 1.8 10 ^3/uL (0.4-5.4); Mean Corpuscular Volume 77.1 fL (80.0-100.0)
[2021-12-09 06:02] LABS: Basophils % (auto) 0.5 % (0.0-2.0); Eosinophils % (auto) 1.3 % (0.0-7.0); Hemoglobin 11.8 g/dL (13.5-17.5); Lymphocytes % (auto) 21.1 % (10.0-50.0); Mean Corpuscular Hemoglobin 26.1 pg (28.0-32.0); Mean Corpuscular Hgb Conc. 33.8 g/dL (32.0-36.0); Monocytes # (auto) 0.8 10 ^3/uL (0-1.3); Neutrophils # (auto) 5.6 10 ^3/uL (1.6-8.6); Neutrophils % (auto) 67.1 % (37.0-80.0); Red Blood Cells 4.53 10^6/uL (4.5-5.90); Red Cell Distribution Width 18.6 % (11.8-14.3); White Blood Cell 8.3 10^3/uL (4.4-10.8)
[2021-12-09 06:16] LABS: Calcium 8.6 mg/dL (8.5-10.1); Magnesium 2.1 mg/dL (1.6-2.6); Potassium 3.9 mmol/L (3.5-5.1)
[2021-12-09 09:00] VITALS: BP 128/71
[2021-12-09] MEDS: InsuLIN REG 1unit/0.01ml Soln (100units/ml) SC SCH ×4 (11:30→21:41)
[2021-12-09] MEDS: ACCU-CHEK COMFORT CURVE STRIP VI SCH ×4 (11:52→21:40)
[2021-12-09] MEDS: ENOXAPARIN SOD 40 MG/0.4 ML SYRINGE SC SCH (12:55)
[2021-12-09 13:00] VITALS: BP 127/81
[2021-12-09 13:43] LABS: INR 1.08 (0.9-1.15)
[2021-12-09 17:00] VITALS: BP 98/59
[2021-12-09 22:00] VITALS: BP 113/62
[2021-12-10] MEDS: VANCOMYCIN 1GM/250ML 250 ML IV SCH ×3 (01:18→21:04)
[2021-12-10 01:41] LABS: Calcium 8.4 mg/dL (8.5-10.1); Potassium 4.4 mmol/L (3.5-5.1)
[2021-12-10] MEDS: HYDROmorphone HCL 2 MG/ML VL IV PRN ×5 (02:00→21:26)
[2021-12-10 03:48] LABS: INR 1.09 (0.9-1.15); Partial Thromboplastin Time 27.1 sec (23.6-33.0)
[2021-12-10 05:00] VITALS: BP 104/66
[2021-12-10] MEDS: ACCU-CHEK COMFORT CURVE STRIP VI SCH ×4 (06:35→23:43)
[2021-12-10] MEDS: InsuLIN REG 1unit/0.01ml Soln (100units/ml) SC SCH ×4 (06:36→22:00)
[2021-12-10] MEDS ORDERED: diphenhdrAMINE HCL 50 MG/1 ML VL IV ONE (08:45)
[2021-12-10] MEDS ORDERED: fentaNYL CITRATE 100 MCG/2 ML VL IV ONE (08:45)
[2021-12-10] MEDS ORDERED: MIDAZOLAM HCL 2MG/2ML 2ml VIAL (1mg/ml) IV ONE (08:45)
[2021-12-10] MEDS ORDERED: LIDOCAINE VISCOUS 2% 15ML UD MT ONE (08:45)
[2021-12-10] MEDS ORDERED: VANCOMYCIN 1GM/250ML 250 ML IV SCH (09:00)
[2021-12-10] MEDS: ENOXAPARIN SOD 40 MG/0.4 ML SYRINGE SC SCH (11:00)
[2021-12-10] MEDS ORDERED: GADOTERATE MEG 10 MMOL/20ml INJ (0.5MMOL/ml) IV ONE (12:42)
[2021-12-10 13:00] VITALS: BP 128/78
[2021-12-10 16:40] VITALS: BP 120/65
[2021-12-10 22:00] VITALS: BP 109/72
[2021-12-11] MEDS: HYDROmorphone HCL 2 MG/ML VL IV PRN ×5 (02:39→20:16)
[2021-12-11 03:02] LABS: Alcohol, Urine < 3.0 mg/dL (0-10); Amphetamine Screen, Urine NEGATIVE (NEGATIVE); Barbiturate Scree,Urine NEGATIVE (NEGATIVE); Benzodiazephine Screen, Urine POSITIVE (NEGATIVE); Cannabinoid Screen, Urine NEGATIVE (NEGATIVE); Cocaine Screen, Urine NEGATIVE (NEGATIVE); Opiate Scree,Urine NEGATIVE (NEGATIVE); Phencyclidine Screen, Urine NEGATIVE (NEGATIVE)
[2021-12-11 03:15] LABS: Urine Bacteria NONE SEEN /hpf (None Seen); Urine Blood TRACE /uL (Negative); Urine Specific Gravity 1.021 (1.001-1.035); Urine WBC 1 /hpf (0 - 3)
[2021-12-11] MEDS: VANCOMYCIN 1GM/250ML 250 ML IV SCH ×3 (04:59→15:58)
[2021-12-11 05:00] VITALS: BP 100/54
[2021-12-11] MEDS: InsuLIN REG 1unit/0.01ml Soln (100units/ml) SC SCH ×4 (07:00→22:00)
[2021-12-11] MEDS: ACCU-CHEK COMFORT CURVE STRIP VI SCH ×4 (07:12→22:40)
[2021-12-11] MEDS: ENOXAPARIN SOD 40 MG/0.4 ML SYRINGE SC SCH (08:56)
[2021-12-11 09:00] VITALS: BP 120/66
[2021-12-11 14:00] VITALS: BP 125/76
[2021-12-11 17:00] VITALS: BP 112/75
[2021-12-11 22:00] VITALS: BP 126/78
[2021-12-12] MEDS: HYDROmorphone HCL 2 MG/ML VL IV PRN ×5 (01:16→19:51)
[2021-12-12] MEDS: VANCOMYCIN 1GM/250ML 250 ML IV SCH ×3 (02:10→22:49)
[2021-12-12 05:00] VITALS: BP 137/90
[2021-12-12] MEDS: ACCU-CHEK COMFORT CURVE STRIP VI SCH ×4 (06:40→22:50)
[2021-12-12] MEDS: InsuLIN REG 1unit/0.01ml Soln (100units/ml) SC SCH ×4 (06:40→22:00)
[2021-12-12 07:04] LABS: Basophils # (auto) 0.1 10 ^3/uL (0-0.2); Basophils % (auto) 0.7 % (0.0-2.0); Eosinophils # (auto) 0.2 10 ^3/uL (0-0.8); Hemoglobin 11.3 g/dL (13.5-17.5); Lymphocytes # (auto) 1.7 10 ^3/uL (0.4-5.4); Lymphocytes % (auto) 17.6 % (10.0-50.0); Mean Corpuscular Hemoglobin 26.2 pg (28.0-32.0); Mean Corpuscular Hgb Conc. 32.2 g/dL (32.0-36.0); Mean Corpuscular Volume 81.3 fL (80.0-100.0); Monocytes # (auto) 0.7 10 ^3/uL (0-1.3); Monocytes % (auto) 7.5 % (0.0-12.0); Neutrophils % (auto) 72.2 % (37.0-80.0); Nucleated Red Blood Cells % 0.1 %; Red Blood Cells 4.31 10^6/uL (4.5-5.90); White Blood Cell 9.8 10^3/uL (4.4-10.8)
[2021-12-12 08:31] VITALS: BP 121/77
[2021-12-12] MEDS: ENOXAPARIN SOD 40 MG/0.4 ML SYRINGE SC SCH (09:53)
[2021-12-12 13:00] VITALS: BP 116/71
[2021-12-12 13:18] LABS: INR 1.08 (0.9-1.15); Partial Thromboplastin Time 28.8 sec (23.6-33.0)
[2021-12-12] MEDS ORDERED: LIDOCAINE 1% (LOCAL ANESTH.) PF 5ml SDV ID ONE (15:30)
[2021-12-12 16:38] VITALS: BP 116/68
[2021-12-12 17:00] VITALS: BP 128/71
[2021-12-12] MEDS: SODIUM CHLOR 0.9% PF (SALINE LOCK) 10ML VIAL/SYR IV SCH (22:49)
[2021-12-13] MEDS: HYDROmorphone HCL 2 MG/ML VL IV PRN ×4 (00:26→14:30)
[2021-12-13 05:00] VITALS: BP 106/66
[2021-12-13] MEDS: InsuLIN REG 1unit/0.01ml Soln (100units/ml) SC SCH ×2 (07:00→11:30)
[2021-12-13] MEDS: ACCU-CHEK COMFORT CURVE STRIP VI SCH ×2 (07:01→12:23)
[2021-12-13] MEDS: VANCOMYCIN 1GM/250ML 250 ML IV SCH (08:00)
[2021-12-13 09:00] VITALS: BP 104/71
[2021-12-13] MEDS: SODIUM CHLOR 0.9% PF (SALINE LOCK) 10ML VIAL/SYR IV SCH (10:28)
[2021-12-13] MEDS: ENOXAPARIN SOD 40 MG/0.4 ML SYRINGE SC SCH (10:28)
[2021-12-13 12:41] VITALS: BP 118/84
[2021-12-13 13:54] VITALS: BP 118/84
[2021-12-13 15:00] VITALS: BP 110/78
== END 2021-12-13 16:12 | disposition home health service (06) | DRG 314 ==
LOC: ER 09:40 → TELE 15:52 → TELE-WESTW 18:36 → TELE 12-07 12:01 → TELE-WESTW 12-07 12:08
PROVIDERS: ADMIT Internal Medicine; ATTEND Internal Medicine
PROC: 05HA33Z Insertion of Infusion Device into Left Brachial Vein, Percutaneous Approach (ICD-10-PCS; principal; 2021-12-06)
PROC: B54NZZA Ultrasonography of Left Upper Extremity Veins, Guidance (ICD-10-PCS; 2021-12-06)
PROC: B24BZZ4 Ultrasonography of Heart with Aorta, Transesophageal (ICD-10-PCS; 2021-12-10)
PROC: 05HA33Z Insertion of Infusion Device into Left Brachial Vein, Percutaneous Approach (ICD-10-PCS; 2021-12-12)
PROC: B54NZZA Ultrasonography of Left Upper Extremity Veins, Guidance (ICD-10-PCS; 2021-12-12)
DX: T80.211A Bloodstream infection due to central venous catheter, initial encounter (principal); I33.0 Acute and subacute infective endocarditis; I26.90 Septic pulmonary embolism without acute cor pulmonale; A41.02 Sepsis due to Methicillin resistant Staphylococcus aureus; I76 Septic arterial embolism; J98.11 Atelectasis; M86.8X6 Other osteomyelitis, lower leg; E10.69 Type 1 diabetes mellitus with other specified complication; E10.40 Type 1 diabetes mellitus with diabetic neuropathy, unspecified; G89.4 Chronic pain syndrome; Z96.41 Presence of insulin pump (external) (internal); E10.51 Type 1 diabetes mellitus with diabetic peripheral angiopathy without gangrene; M54.9 Dorsalgia, unspecified; Z20.822 Contact with and (suspected) exposure to COVID-19; I08.1 Rheumatic disorders of both mitral and tricuspid valves; Y83.8 Other surgical procedures as the cause of abnormal reaction of the patient, or of later complication, without mention of misadventure at the time of the procedure; I10 Essential (primary) hypertension; Z79.4 Long term (current) use of insulin; Z89.611 Acquired absence of right leg above knee; Z89.612 Acquired absence of left leg above knee; Z79.899 Other long term (current) drug therapy; Z82.49 Family history of ischemic heart disease and other diseases of the circulatory system; Z83.3 Family history of diabetes mellitus; Z89.511 Acquired absence of right leg below knee; Z89.512 Acquired absence of left leg below knee; Y92.89 Other specified places as the place of occurrence of the external cause
CPT/HCPCS: 36415; 36569; 70553; 71250; 74177; 80048; 80053; 80202; 80307; 81001; 82565; 82962; 83605; 83735; 84484; 85025; 85610; 85730; 86850; 86900; 86901; 87040; 87070; 87077; 87081; 87086; 87186; 87205; 93306; 93312; 96365; 96367; 96375; 96376; 99152; 99291; G0378; J1335; J1815; J2250; J2405; J2543

== ENCOUNTER 2021-12-21 10:22 | Emergency (ER) | payer MEDICAID, OTHER ==
[~2021-12-21 10:22] MED LIST changes: -MET500T PO
[2021-12-21 10:45] VITALS: BP 115/86
[2021-12-21 11:50] LABS: Basophils # (auto) 0 10 ^3/uL (0-0.2); Basophils % (auto) 0.6 % (0.0-2.0); Eosinophils # (auto) 0.1 10 ^3/uL (0-0.8); Lymphocytes # (auto) 1.8 10 ^3/uL (0.4-5.4); Mean Corpuscular Volume 78.9 fL (80.0-100.0); Monocytes # (auto) 0.5 10 ^3/uL (0-1.3)
[2021-12-21 11:52] LABS: Eosinophils % (auto) 0.8 % (0.0-7.0); Hematocrit 35.1 % (41.0-53.0); Hemoglobin 11.7 g/dL (13.5-17.5); Lymphocytes % (auto) 23.8 % (10.0-50.0); Mean Corpuscular Hemoglobin 26.3 pg (28.0-32.0); Mean Corpuscular Hgb Conc. 33.3 g/dL (32.0-36.0); Monocytes % (auto) 6.4 % (0.0-12.0); Neutrophils # (auto) 5.2 10 ^3/uL (1.6-8.6); Neutrophils % (auto) 68.4 % (37.0-80.0); Nucleated Red Blood Cells % 0.1 %; Red Blood Cells 4.45 10^6/uL (4.5-5.90); White Blood Cell 7.7 10^3/uL (4.4-10.8)
[2021-12-21 12:07] LABS: INR 1.05 (0.9-1.15); Partial Thromboplastin Time 23.8 sec (23.6-33.0)
[2021-12-21] MEDS ORDERED: LIDOCAINE 1% (LOCAL ANESTH.) PF 5ml SDV ID ONE (13:15)
== END 2021-12-21 14:08 | disposition home or self-care (01) ==
LOC: ER 10:22
DX: Z45.2 Encounter for adjustment and management of vascular access device (principal); I10 Essential (primary) hypertension; E11.9 Type 2 diabetes mellitus without complications; E78.5 Hyperlipidemia, unspecified; Z79.4 Long term (current) use of insulin; Z79.899 Other long term (current) drug therapy
CPT/HCPCS: 36415; 36569; 71045; 85025; 85610; 85730; 99284; C1751; J7050

== ENCOUNTER 2022-01-15 14:29 | Emergency (ER) | payer MEDICARE, MEDICAID ==
[2022-01-15 14:30] VITALS: BP 104/59
== END 2022-01-15 20:53 | disposition left against medical advice (07) ==
LOC: ER 14:29
DX: M79.605 Pain in left leg (principal); R22.42 Localized swelling, mass and lump, left lower limb; I10 Essential (primary) hypertension; E11.9 Type 2 diabetes mellitus without complications; E78.5 Hyperlipidemia, unspecified; Z89.512 Acquired absence of left leg below knee; Z79.4 Long term (current) use of insulin; Z79.899 Other long term (current) drug therapy
CPT/HCPCS: 93971

== ENCOUNTER 2023-12-11 19:29 | Inpatient (IN) | payer MEDICARE, OTHER ==
[~2023-12-11] VITALS: Ht 152.4 cm; Wt 76.0 kg
[~2023-12-11 19:29] MED LIST changes: -LISI-716 PO; +LISI10TA34 PO
[2023-12-11 20:19] LABS: Eosinophils # (auto) 0.1 10 ^3/uL (0-0.8); Eosinophils % (auto) 1.1 % (0.0-7.0); Hemoglobin 9.8 g/dL (13.5-17.5); Mean Corpuscular Hemoglobin 24.7 pg (28.0-32.0); Monocytes # (auto) 0.4 10 ^3/uL (0-1.3); Monocytes % (auto) 4.8 % (0.0-12.0); Nucleated Red Blood Cells % 0.1 %
[2023-12-11 20:22] LABS: Basophils # (auto) 0.1 10 ^3/uL (0-0.2); Basophils % (auto) 0.8 % (0.0-2.0); Hematocrit 31.7 % (41.0-53.0); Lymphocytes # (auto) 1.2 10 ^3/uL (0.4-5.4); Lymphocytes % (auto) 14.2 % (10.0-50.0); Mean Corpuscular Hgb Conc. 30.9 g/dL (32.0-36.0); Mean Corpuscular Volume 79.9 fL (80.0-100.0); Neutrophils % (auto) 79.1 % (37.0-80.0); Red Blood Cells 3.97 10^6/uL (4.5-5.90); Red Cell Distribution Width 22.5 % (11.8-14.3); White Blood Cell 8.8 10^3/uL (4.4-10.8)
[2023-12-11 20:39] LABS: Alanine Aminotransferase 110 U/L (7-40); Albumin 3.7 g/dL (3.2-4.8); Alkaline Phosphatase 461 U/L (46-116); Anion Gap 10 (5-15); Aspartate Aminotransferase 108 U/L (13-40); BUN/Creatinine Ratio 33.3 (10.0-20.0); Bilirubin, Total 0.2 mg/dL (0.2-1.0); Blood Urea Nitrogen 26 mg/dL (9-23); Calcium 9.1 mg/dL (8.5-10.1); Carbon Dioxide 22 mmol/L (20-30); Chloride 102 mmol/L (98-107); Glucose 271 mg/dL (74-106); Potassium 5.4 mmol/L (3.5-5.1); Sodium 134 mmol/L (136-145); Total Protein 6.6 g/dL (5.7-8.2)
[2023-12-11 23:46] LABS: Urine Bacteria FEW /hpf (None Seen); Urine Blood TRACE /uL (Negative); Urine Clarity Clear (Clear); Urine Color Light-Yellow (Yellow); Urine Protein, UAD 1+ (Negative); Urine Specific Gravity 1.014 (1.001-1.035); Urine Urobilinogen Normal (Negative); Urine WBC 2 /hpf (0 - 3)
[2023-12-12] VITALS (9 sets, daily range): BP systolic 107–125; BP diastolic 64–81; PULSE 79–104; RESP 17–22; TEMP 97.5–98.3; O2SAT 94–96
[2023-12-12] MEDS: ENOXAPARIN SOD 100 MG/1 ML SYRINGE SC ONE (00:35)
[2023-12-12] MEDS: HYDROcodone-ACET 5/325MG TAB PO ONE (00:35)
[2023-12-12] MEDS: MORPHINE SULFATE 4 MG/ML SYR/VIAL IV ONE (01:15)
[2023-12-12] MEDS: ONDANSETRON HCL 4 MG/2 ML VIAL IV ONE (01:15)
[2023-12-12] MEDS ORDERED: DEXTROSE (50%) 50ML SYRG IV PRN ×2 (02:30→10:00)
[2023-12-12] MEDS ORDERED: IBUPROFEN 600 MG TAB PO PRN (02:30)
[2023-12-12] MEDS ORDERED: NITROGLYCERIN 0.4 MG SL TAB SL PRN (02:30)
[2023-12-12] MEDS ORDERED: DOCUSATE SOD 100 MG CAP PO PRN (02:30)
[2023-12-12] MEDS: SODIUM ZIRCONIUM CYCL 10 GM PAK PO ONE (02:30)
[2023-12-12] MEDS: SODIUM CHLORIDE 0.9% 1,000 ML IV SCH (02:30)
[2023-12-12] MEDS ORDERED: MORPHINE SULFATE INJ 2 MG/ml SYRG IV PRN (02:30)
[2023-12-12] MEDS ORDERED: HYDROmorphone HCL 2 MG/ML VL/or syr IV ONE (03:00)
[2023-12-12] MEDS: HYDROmorphone HCL 2 MG/ML VL/or syr IM ONE (03:38)
[2023-12-12 05:51] LABS: Amphetamine Screen, Urine Neg (NEGATIVE); Barbiturate Scree,Urine Neg (NEGATIVE); Benzodiazephine Screen, Urine Neg (NEGATIVE); Cocaine Screen, Urine Neg (NEGATIVE)
[2023-12-12 05:52] LABS: Cannabinoid Screen, Urine Neg (NEGATIVE); Opiate Scree,Urine Neg (NEGATIVE); Phencyclidine Screen, Urine Neg (NEGATIVE)
[2023-12-12] MEDS: ACCU-CHEK COMFORT CURVE STRIP VI SCH ×2 (06:47→11:49)
[2023-12-12] MEDS: InsuLIN REG 1unit/0.01ml Soln (100units/ml) SC SCH ×3 (06:51→21:50)
[2023-12-12] MEDS: INSULIN LANTUS (GLARGINE) 1 /0.01ml (100units/ml) SC SCH (09:00)
[2023-12-12] MEDS: Oxybutynin Chloride (Ditropan Xl) 5 MG PO SCH (10:00)
[2023-12-12] MEDS ORDERED: PATIENTS OWN MEDICATION (Pregabalin (Lyrica) 1 CAP) PO SCH (10:00)
[2023-12-12] MEDS ORDERED: PATIENTS OWN MEDICATION (Lisinopril 10 MG) PO SCH (10:00)
[2023-12-12 10:35] LABS: Alanine Aminotransferase 84 U/L (7-40); Alkaline Phosphatase 409 U/L (46-116); Anion Gap 8 (5-15); Aspartate Aminotransferase 17 U/L (13-40); BUN/Creatinine Ratio 26.1 (10.0-20.0); Blood Urea Nitrogen 24 mg/dL (9-23); Calcium 9.2 mg/dL (8.5-10.1); Carbon Dioxide 23 mmol/L (20-30); Chloride 104 mmol/L (98-107); Potassium 4.3 mmol/L (3.5-5.1); Sodium 135 mmol/L (136-145)
[2023-12-12 10:36] LABS: Bilirubin, Total 0.2 mg/dL (0.2-1.0); Total Protein 7.2 g/dL (5.7-8.2)
[2023-12-12 10:39] LABS: Glucose 151 mg/dL (74-106)
[2023-12-12] MEDS: HYDROmorphone HCL 2 MG TAB PO PRN (10:43)
[2023-12-12] MEDS: METOPROLOL TARTRATE 25 MG TAB PO SCH (10:44)
[2023-12-12] MEDS: ENOXAPARIN SOD 80 MG/0.8ML SYRINGE SC SCH (10:44)
[2023-12-12 12:56] LABS: Basophils # (auto) 0.1 10 ^3/uL (0-0.2); Eosinophils # (auto) 0.1 10 ^3/uL (0-0.8); Nucleated Red Blood Cells % 0.1 %
[2023-12-12 12:57] LABS: Basophils % (auto) 0.8 % (0.0-2.0); Eosinophils % (auto) 1.4 % (0.0-7.0); Hematocrit 29.1 % (41.0-53.0); Hemoglobin 9.1 g/dL (13.5-17.5); Lymphocytes # (auto) 2.9 10 ^3/uL (0.4-5.4); Lymphocytes % (auto) 28.2 % (10.0-50.0); Mean Corpuscular Hemoglobin 25.2 pg (28.0-32.0); Mean Corpuscular Hgb Conc. 31.3 g/dL (32.0-36.0); Mean Corpuscular Volume 80.4 fL (80.0-100.0); Monocytes % (auto) 9.9 % (0.0-12.0); Neutrophils # (auto) 6.2 10 ^3/uL (1.6-8.6); Neutrophils % (auto) 59.7 % (37.0-80.0); Red Blood Cells 3.62 10^6/uL (4.5-5.90); White Blood Cell 10.4 10^3/uL (4.4-10.8)
[2023-12-12] MEDS: PREGABALIN CAPSULE 75 MG CAP PO SCH (21:30)
[2023-12-12] MEDS: MUPIROCIN 2% OINT 15gm or 22gm FOR MRSA NARES EACHNOSTRI SCH (21:49)
[2023-12-12] MEDS ORDERED: ENOXAPARIN SOD 80 MG/0.8ML SYRINGE SC SCH (22:00)
[2023-12-12] MEDS ORDERED: InsuLIN REG 1unit/0.01ml Soln (100units/ml) SC SCH (22:00)
[2023-12-13] VITALS (7 sets, daily range): BP systolic 127–150; BP diastolic 76–93; PULSE 77–119; RESP 16–20; TEMP 97.6–99.6; O2SAT 94–99
[2023-12-13 06:20] LABS: Basophils # (auto) 0.1 10 ^3/uL (0-0.2); Mean Corpuscular Hemoglobin 24.9 pg (28.0-32.0); Monocytes % (auto) 11.3 % (0.0-12.0)
[2023-12-13 06:23] LABS: Basophils % (auto) 0.7 % (0.0-2.0); Eosinophils # (auto) 0.2 10 ^3/uL (0-0.8); Eosinophils % (auto) 1.9 % (0.0-7.0); Hematocrit 28.3 % (41.0-53.0); Hemoglobin 8.8 g/dL (13.5-17.5); Lymphocytes # (auto) 2.6 10 ^3/uL (0.4-5.4); Lymphocytes % (auto) 21.4 % (10.0-50.0); Mean Corpuscular Hgb Conc. 31.3 g/dL (32.0-36.0); Mean Corpuscular Volume 79.5 fL (80.0-100.0); Monocytes # (auto) 1.4 10 ^3/uL (0-1.3); Neutrophils # (auto) 7.9 10 ^3/uL (1.6-8.6); Neutrophils % (auto) 64.7 % (37.0-80.0); Red Blood Cells 3.56 10^6/uL (4.5-5.90); White Blood Cell 12.2 10^3/uL (4.4-10.8)
[2023-12-13 06:25] LABS: Red Cell Distribution Width 22.3 % (11.8-14.3)
[2023-12-13 06:49] LABS: Alanine Aminotransferase 56 U/L (7-40); Albumin 3.6 g/dL (3.2-4.8); Alkaline Phosphatase 335 U/L (46-116); Anion Gap 5 (5-15); Aspartate Aminotransferase 19 U/L (13-40); BUN/Creatinine Ratio 30.6 (10.0-20.0); Blood Urea Nitrogen 26 mg/dL (9-23); Calcium 9.1 mg/dL (8.7-10.4); Carbon Dioxide 23 mmol/L (20-30); Chloride 105 mmol/L (98-107); Potassium 4.3 mmol/L (3.5-5.1); Sodium 133 mmol/L (136-145)
[2023-12-13 06:50] LABS: Bilirubin, Total 0.2 mg/dL (0.2-1.0); Total Protein 6.7 g/dL (5.7-8.2)
[2023-12-13 06:56] LABS: Glucose 253 mg/dL (74-106)
[2023-12-13] MEDS: LISINOPRIL 5 MG TAB PO SCH (09:37)
[2023-12-13] MEDS: PANTOPRAZOLE 40 MG TAB PO SCH (21:54)
[2023-12-13] MEDS: HYDROcodone-ACET 5/325MG TAB PO PRN (21:55)
[2023-12-14] VITALS (8 sets, daily range): BP systolic 111–154; BP diastolic 60–89; PULSE 85–112; RESP 18–20; TEMP 98.2–98.6; O2SAT 92–98
[2023-12-14 07:00] LABS: Basophils # (auto) 0.1 10 ^3/uL (0-0.2); Eosinophils # (auto) 0.2 10 ^3/uL (0-0.8); Neutrophils # (auto) 7.1 10 ^3/uL (1.6-8.6); Neutrophils % (auto) 60.7 % (37.0-80.0)
[2023-12-14 07:02] LABS: Basophils % (auto) 0.7 % (0.0-2.0); Hematocrit 28.9 % (41.0-53.0); Hemoglobin 8.6 g/dL (13.5-17.5); Mean Corpuscular Hgb Conc. 29.9 g/dL (32.0-36.0); Mean Corpuscular Volume 83.7 fL (80.0-100.0); Monocytes # (auto) 1.2 10 ^3/uL (0-1.3); Monocytes % (auto) 10.6 % (0.0-12.0); Nucleated Red Blood Cells % 0.2 %; Red Blood Cells 3.45 10^6/uL (4.5-5.90); Red Cell Distribution Width 22.7 % (11.8-14.3); White Blood Cell 11.7 10^3/uL (4.4-10.8)
[2023-12-14] MEDS: cefTRIAXone 1GM/50ML D5W 50 ML IV SCH (08:25)
[2023-12-14 11:18] LABS: INR 1.07 (0.9-1.15); Prothrombin Time 11.2 sec (9.3-11.8)
[2023-12-14 11:22] LABS: Alanine Aminotransferase 44 U/L (7-40); Albumin 3.6 g/dL (3.2-4.8); Alkaline Phosphatase 312 U/L (46-116); Anion Gap 8 (5-15); Aspartate Aminotransferase 21 U/L (13-40); BUN/Creatinine Ratio 38.4 (10.0-20.0); Bilirubin, Total 0.2 mg/dL (0.2-1.0); Blood Urea Nitrogen 28 mg/dL (9-23); Calcium 8.9 mg/dL (8.5-10.1); Carbon Dioxide 21 mmol/L (20-30); Chloride 106 mmol/L (98-107); Glucose 188 mg/dL (74-106); Potassium 4.5 mmol/L (3.5-5.1); Sodium 135 mmol/L (136-145); Total Protein 6.6 g/dL (5.7-8.2)
[2023-12-14] MEDS: HYDROmorphone HCL 2 MG TAB PO PRN (12:43)
[2023-12-14] MEDS: MELATONIN 5 MG TAB PO ONE (21:24)
[2023-12-15] VITALS (8 sets, daily range): BP systolic 96–128; BP diastolic 49–75; PULSE 89–104; RESP 18–22; TEMP 97.6–98.3; O2SAT 92–100
[2023-12-15 08:58] LABS: Hepatitis B Core Total AB Negative (Negative)
[2023-12-15 09:41] LABS: Hepatitis A Total Antibody Negative (Negative); Hepatitis B Surface Antibody Negative (Negative); Hepatitis B Surface Antigen Negative (Negative); Hepatitis C Antibody Negative (Negative)
[2023-12-15 11:15] LABS: Hemoglobin 9.2 g/dL (13.5-17.5)
[2023-12-15 11:16] LABS: Basophils # (auto) 0.2 10 ^3/uL (0-0.2); Basophils % (auto) 1.7 % (0.0-2.0); Eosinophils # (auto) 0.3 10 ^3/uL (0-0.8); Eosinophils % (auto) 2.2 % (0.0-7.0); Hematocrit 29.8 % (41.0-53.0); Lymphocytes # (auto) 3.2 10 ^3/uL (0.4-5.4); Lymphocytes % (auto) 23.6 % (10.0-50.0); Mean Corpuscular Hemoglobin 24.4 pg (28.0-32.0); Mean Corpuscular Hgb Conc. 30.8 g/dL (32.0-36.0); Mean Corpuscular Volume 79.2 fL (80.0-100.0); Monocytes # (auto) 1.3 10 ^3/uL (0-1.3); Monocytes % (auto) 9.7 % (0.0-12.0); Neutrophils # (auto) 8.4 10 ^3/uL (1.6-8.6); Neutrophils % (auto) 62.8 % (37.0-80.0); Nucleated Red Blood Cells % 0.1 %; Red Blood Cells 3.76 10^6/uL (4.5-5.90); White Blood Cell 13.4 10^3/uL (4.4-10.8)
[2023-12-15 11:31] LABS: Red Cell Distribution Width 22.8 % (11.8-14.3)
[2023-12-15 11:52] LABS: INR 1.01 (0.9-1.15); Partial Thromboplastin Time 29.9 SEC (24.5-34.5); Prothrombin Time 10.6 sec (9.3-11.8)
[2023-12-15] MEDS: PIPERACILLIN-TAZOB 3.375GM 100 ML IV SCH (12:35)
[2023-12-15] MEDS: HEPARIN DRIP/D5W 100UNITS/ML 250 ML IV SCH ×2 (12:44→21:26)
[2023-12-15 18:27] LABS: INR 1.04 (0.9-1.15); Partial Thromboplastin Time 31.6 SEC (24.5-34.5); Prothrombin Time 10.9 sec (9.3-11.8)
[2023-12-15] MEDS: HEPARIN SODIUM (PORCINE) 5000 UNITS/ML 1ML VIAL IV ONE (21:10)
[2023-12-15] MEDS: MORPHINE SULFATE INJ 2 MG/ml SYRG IV PRN (21:30)
[2023-12-16] VITALS (17 sets, daily range): BP systolic 96–135; BP diastolic 52–82; PULSE 83–98; RESP 12–22; TEMP 97.4–98.8; O2SAT 92–99
[2023-12-16 03:58] LABS: Basophils # (auto) 0.1 10 ^3/uL (0-0.2); Eosinophils # (auto) 0.4 10 ^3/uL (0-0.8); Hemoglobin 8.5 g/dL (13.5-17.5); Mean Corpuscular Volume 79.3 fL (80.0-100.0); Neutrophils # (auto) 5.5 10 ^3/uL (1.6-8.6)
[2023-12-16 04:02] LABS: Basophils % (auto) 1.3 % (0.0-2.0); Eosinophils % (auto) 4.4 % (0.0-7.0); Hematocrit 27.4 % (41.0-53.0); Lymphocytes # (auto) 3.2 10 ^3/uL (0.4-5.4); Lymphocytes % (auto) 31.2 % (10.0-50.0); Mean Corpuscular Hemoglobin 24.6 pg (28.0-32.0); Monocytes % (auto) 9.5 % (0.0-12.0); Neutrophils % (auto) 53.6 % (37.0-80.0); Red Blood Cells 3.45 10^6/uL (4.5-5.90); White Blood Cell 10.2 10^3/uL (4.4-10.8)
[2023-12-16 04:19] LABS: Red Cell Distribution Width 22.4 % (11.8-14.3)
[2023-12-16] MEDS: HEPARIN DRIP/D5W 100UNITS/ML 250 ML IV SCH ×2 (04:47→17:36)
[2023-12-16 07:00] LABS: Anisocytosis Slight; Hypochromia Slight; Platelet Estimate Increased
[2023-12-16 07:04] LABS: Target Cell FEW
[2023-12-16 11:50] LABS: INR 0.97 (0.9-1.15); Partial Thromboplastin Time 29.6 SEC (24.5-34.5); Prothrombin Time 10.2 sec (9.3-11.8)
[2023-12-16] MEDS: fentaNYL CITRATE 100 MCG/2 ML VL ONE (12:03)
[2023-12-16] MEDS: ANGIOMAX 250 MG VIAL IV ONE (12:03)
[2023-12-16] MEDS: SODIUM CHL 0.9% 0 ML ONE (12:03)
[2023-12-16] MEDS: MIDAZOLAM HCL 2MG/2ML 2ml VIAL (1mg/ml) ONE (12:04)
[2023-12-16] MEDS: LIDOCAINE 2%HCL (LOCAL ANESTH.) INJ 20ML MDV ONE (12:05)
[2023-12-16] MEDS: IODIXANOL 320MG/ML 100ML BTL IV ONE ×3 (12:05→13:31)
[2023-12-16] MEDS: HYDROmorphone HCL 2 MG/ML VL/or syr ONE ×2 (12:27→15:20)
[2023-12-16] MEDS ORDERED: GLYCOPYRROLATE 0.2 MG/ML 1ML VIAL ONE (13:02)
[2023-12-16] MEDS ORDERED: LIDOCAINE 1% INJ PF 5ML AMP ONE (13:02)
[2023-12-16] MEDS ORDERED: PROPOFOL 10 MG/ML 20 ML IV ONE (13:02)
[2023-12-16] MEDS ORDERED: ONDANSETRON HCL 4 MG/2 ML VIAL ONE (13:02)
[2023-12-16] MEDS ORDERED: KETAMINE 50mg/ML 1ml syringe ONE (13:02)
[2023-12-16] MEDS ORDERED: NALOXONE HCL 0.4 MG/ML VIAL IV PRN (14:15)
[2023-12-16] MEDS ORDERED: FLUMAZENIL 0.1 MG/ML INJ 10ML MDV IV PRN (14:15)
[2023-12-16] MEDS ORDERED: ePHEDrine SULFATE 50 MG/ML AMP IV PRN (14:15)
[2023-12-16] MEDS ORDERED: LABETALOL HCL 5 MG/ML 4ML SYRINGE IV PRN (14:15)
[2023-12-16] MEDS ORDERED: hydrALAZINE HCL 20 MG/ML VL IV PRN (14:15)
[2023-12-16] MEDS ORDERED: ONDANSETRON HCL 4 MG/2 ML VIAL IV PRN (14:15)
[2023-12-16] MEDS ORDERED: HYDROmorphone HCL 2 MG/ML VL/or syr IV PRN ×2 (14:15)
[2023-12-16] MEDS: HEPARIN SODIUM (PORCINE) 5000 UNITS/ML 1ML VIAL IV ONE (17:25)
[2023-12-17] VITALS (8 sets, daily range): BP systolic 85–123; BP diastolic 51–73; PULSE 86–97; RESP 18–22; TEMP 97.6–98.3; O2SAT 92–100
[2023-12-17 00:05] LABS: INR 1.01 (0.9-1.15); Partial Thromboplastin Time 61.4 SEC (24.5-34.5); Prothrombin Time 10.6 sec (9.3-11.8)
[2023-12-17] MEDS: ACCU-CHEK COMFORT CURVE STRIP VI SCH ×2 (02:19)
[2023-12-17] MEDS: InsuLIN REG 1unit/0.01ml Soln (100units/ml) SC SCH (02:25)
[2023-12-17] MEDS ORDERED: InsuLIN REG 1unit/0.01ml Soln (100units/ml) SC SCH ×3 (04:00)
[2023-12-17 07:47] LABS: Basophils # (auto) 0.1 10 ^3/uL (0-0.2); Eosinophils # (auto) 0.3 10 ^3/uL (0-0.8); Nucleated Red Blood Cells % 0.1 %; Red Cell Distribution Width 22.3 % (11.8-14.3)
[2023-12-17 07:52] LABS: Basophils % (auto) 0.8 % (0.0-2.0); Eosinophils % (auto) 2.6 % (0.0-7.0); Hematocrit 24.7 % (41.0-53.0); Hemoglobin 7.8 g/dL (13.5-17.5); Lymphocytes # (auto) 2.5 10 ^3/uL (0.4-5.4); Lymphocytes % (auto) 25.7 % (10.0-50.0); Mean Corpuscular Hemoglobin 24.8 pg (28.0-32.0); Mean Corpuscular Hgb Conc. 31.4 g/dL (32.0-36.0); Monocytes # (auto) 0.6 10 ^3/uL (0-1.3); Monocytes % (auto) 6.6 % (0.0-12.0); Neutrophils # (auto) 6.2 10 ^3/uL (1.6-8.6); Neutrophils % (auto) 64.3 % (37.0-80.0); Red Blood Cells 3.13 10^6/uL (4.5-5.90); White Blood Cell 9.6 10^3/uL (4.4-10.8)
[2023-12-17 08:00] LABS: INR 1.02 (0.9-1.15); Partial Thromboplastin Time 65.1 SEC (24.5-34.5); Prothrombin Time 10.7 sec (9.3-11.8)
[2023-12-17 08:08] LABS: Calcium 8.8 mg/dL (8.5-10.1); Chloride 105 mmol/L (98-107); Potassium 4.1 mmol/L (3.5-5.1); Sodium 137 mmol/L (136-145)
[2023-12-17 08:09] LABS: Anion Gap 7 (5-15); Carbon Dioxide 25 mmol/L (20-30)
[2023-12-17 08:14] LABS: Glucose 151 mg/dL (74-106)
[2023-12-17 08:15] LABS: Blood Urea Nitrogen 34 mg/dL (9-23)
[2023-12-17 12:40] LABS: INR 1.02 (0.9-1.15); Partial Thromboplastin Time 51.9 SEC (24.5-34.5); Prothrombin Time 10.7 sec (9.3-11.8)
[2023-12-17] MEDS: ONDANSETRON HCL 4 MG/2 ML VIAL IV PRN (22:15)
[2023-12-18] VITALS (8 sets, daily range): BP systolic 112–143; BP diastolic 66–83; PULSE 84–104; RESP 16–20; TEMP 97.8–98.9; O2SAT 97–100
[2023-12-18 06:54] LABS: INR 1.04 (0.9-1.15); Partial Thromboplastin Time 69.8 SEC (24.5-34.5); Prothrombin Time 10.9 sec (9.3-11.8)
[2023-12-18] MEDS: PIPERACILLIN-TAZOB 3.375GM 100 ML IV SCH (12:30)
[2023-12-19 05:00] VITALS: BP 106/65; PULSE 82; RESP 20; TEMP 98.6; O2SAT 97
[2023-12-19 06:49] LABS: Basophils # (auto) 0.1 10 ^3/uL (0-0.2); Hemoglobin 8.1 g/dL (13.5-17.5); Mean Corpuscular Hgb Conc. 30.6 g/dL (32.0-36.0); Monocytes # (auto) 0.7 10 ^3/uL (0-1.3); Neutrophils # (auto) 7.3 10 ^3/uL (1.6-8.6); Nucleated Red Blood Cells % 0.1 %
[2023-12-19 06:52] LABS: Eosinophils # (auto) 0.2 10 ^3/uL (0-0.8); Eosinophils % (auto) 2.2 % (0.0-7.0); Hematocrit 26.6 % (41.0-53.0); Lymphocytes # (auto) 2.8 10 ^3/uL (0.4-5.4); Lymphocytes % (auto) 25.1 % (10.0-50.0); Mean Corpuscular Volume 78.3 fL (80.0-100.0); Monocytes % (auto) 6.4 % (0.0-12.0); Neutrophils % (auto) 65.3 % (37.0-80.0); Red Blood Cells 3.39 10^6/uL (4.5-5.90); White Blood Cell 11.2 10^3/uL (4.4-10.8)
[2023-12-19 07:06] LABS: INR 1.03 (0.9-1.15); Partial Thromboplastin Time 69.1 SEC (24.5-34.5); Prothrombin Time 10.9 sec (9.3-11.8)
[2023-12-19 07:16] LABS: Red Cell Distribution Width 21.7 % (11.8-14.3)
[2023-12-19 07:30] VITALS: PULSE 96; RESP 18
[2023-12-19 09:00] VITALS: BP 115/69; PULSE 91; RESP 16; TEMP 98.5; O2SAT 98
[2023-12-19 13:00] VITALS: BP 124/72; PULSE 89; RESP 15; TEMP 98; O2SAT 98
[2023-12-19 20:00] VITALS: PULSE 96; PULSE 98; RESP 18; O2SAT 98
[2023-12-19 21:00] VITALS: BP 113/71; PULSE 91; RESP 18; TEMP 98.2; O2SAT 97
[2023-12-20] VITALS (8 sets, daily range): BP systolic 92–127; BP diastolic 53–82; PULSE 64–96; RESP 16–20; TEMP 36.3; O2SAT 95–98
[2023-12-20 06:33] LABS: INR 1.03 (0.9-1.15); Partial Thromboplastin Time 42.9 SEC (24.5-34.5); Prothrombin Time 10.9 sec (9.3-11.8)
[2023-12-20] MEDS: HEPARIN DRIP/D5W 100UNITS/ML 250 ML IV SCH ×2 (07:04→15:29)
[2023-12-20] MEDS: LOPERAMIDE HCL 2 MG CAP/TAB PO PRN (13:23)
[2023-12-20 14:24] LABS: Basophils # (auto) 0.1 10 ^3/uL (0-0.2); Eosinophils # (auto) 0.2 10 ^3/uL (0-0.8); Lymphocytes # (auto) 1.9 10 ^3/uL (0.4-5.4); Mean Corpuscular Hemoglobin 24.4 pg (28.0-32.0)
[2023-12-20 14:26] LABS: Basophils % (auto) 1.2 % (0.0-2.0); Eosinophils % (auto) 1.9 % (0.0-7.0); Hematocrit 27.6 % (41.0-53.0); Hemoglobin 8.6 g/dL (13.5-17.5); Lymphocytes % (auto) 16.6 % (10.0-50.0); Mean Corpuscular Hgb Conc. 30.9 g/dL (32.0-36.0); Mean Corpuscular Volume 78.9 fL (80.0-100.0); Monocytes # (auto) 0.5 10 ^3/uL (0-1.3); Monocytes % (auto) 4.1 % (0.0-12.0); Neutrophils % (auto) 76.2 % (37.0-80.0); White Blood Cell 11.8 10^3/uL (4.4-10.8)
[2023-12-20 14:27] LABS: Red Cell Distribution Width 22.6 % (11.8-14.3)
[2023-12-20 14:42] LABS: INR 1.05 (0.9-1.15); Partial Thromboplastin Time 43.9 SEC (24.5-34.5); Prothrombin Time 11.1 sec (9.3-11.8)
[2023-12-20] MEDS: Juven Orange Powder PACKET 27.5gm PO SCH (21:56)
[2023-12-21] VITALS (8 sets, daily range): BP systolic 101–136; BP diastolic 58–72; PULSE 89–103; RESP 16–19; TEMP 97.5–98.2; O2SAT 93–98
[2023-12-21 06:33] LABS: INR 1.08 (0.9-1.15); Prothrombin Time 11.4 sec (9.3-11.8)
[2023-12-21 06:50] LABS: Partial Thromboplastin Time 79.2 SEC (24.5-34.5)
[2023-12-21] MEDS: HEPARIN DRIP/D5W 100UNITS/ML 250 ML IV SCH ×3 (09:54→21:54)
[2023-12-21 20:46] LABS: INR 1.07 (0.9-1.15); Partial Thromboplastin Time 38.8 SEC (24.5-34.5); Prothrombin Time 11.3 sec (9.3-11.8)
[2023-12-22] VITALS (8 sets, daily range): BP systolic 99–146; BP diastolic 52–86; PULSE 83–101; RESP 16–20; TEMP 97.8–98.5; O2SAT 95–99
[2023-12-22 03:56] LABS: INR 1.08 (0.9-1.15); Partial Thromboplastin Time 52.7 SEC (24.5-34.5); Prothrombin Time 11.4 sec (9.3-11.8)
[2023-12-22 11:11] LABS: INR 1.08 (0.9-1.15); Partial Thromboplastin Time 55.3 SEC (24.5-34.5); Prothrombin Time 11.4 sec (9.3-11.8)
[2023-12-22] MEDS: OXYCODONE W/ ACETAMINOPHEN 5/325MG TABLET PO PRN (15:42)
[2023-12-22 17:12] LABS: INR 1.1 (0.9-1.15); Partial Thromboplastin Time 69.2 SEC (24.5-34.5); Prothrombin Time 11.6 sec (9.3-11.8)
[2023-12-23] VITALS (8 sets, daily range): BP systolic 118–135; BP diastolic 63–79; PULSE 89–105; RESP 18–20; TEMP 97.9–98.5; O2SAT 95–97
[2023-12-23 06:28] LABS: INR 1.1 (0.9-1.15); Partial Thromboplastin Time 32.8 SEC (24.5-34.5); Prothrombin Time 11.6 sec (9.3-11.8)
[2023-12-23] MEDS ORDERED: DEXTROSE (50%) 50ML SYRG IV SCH (08:45)
[2023-12-23] MEDS: HEPARIN SODIUM (PORCINE) 5000 UNITS/ML 1ML VIAL IV ONE (08:50)
[2023-12-23] MEDS: APIXABAN 5 MG TAB PO SCH (11:00)
[2023-12-23] MEDS ORDERED: InsuLIN REG 1unit/0.01ml Soln (100units/ml) SC SCH (12:00)
[2023-12-23] MEDS ORDERED: ACCU-CHEK COMFORT CURVE STRIP VI SCH (12:00)
[2023-12-23 15:39] LABS: INR 1.1 (0.9-1.15); Partial Thromboplastin Time 21.4 SEC (24.5-34.5); Prothrombin Time 11.6 sec (9.3-11.8)
[2023-12-23] MEDS: HYDROmorphone HCL 2 MG TAB PO PRN (16:57)
[2023-12-23] MEDS: InsuLIN REG 1unit/0.01ml Soln (100units/ml) SC SCH (21:18)
[2023-12-24] VITALS (8 sets, daily range): BP systolic 111–144; BP diastolic 64–86; PULSE 96–112; RESP 14–21; TEMP 97.9–98.2; O2SAT 95–100
[2023-12-24 06:39] LABS: Alanine Aminotransferase 14 U/L (7-40); Albumin 3.8 g/dL (3.2-4.8); Alkaline Phosphatase 142 U/L (46-116); Anion Gap 7 (5-15); Aspartate Aminotransferase 30 U/L (13-40); Blood Urea Nitrogen 21 mg/dL (9-23); Calcium 9.5 mg/dL (8.5-10.1); Carbon Dioxide 26 mmol/L (20-30); Chloride 105 mmol/L (98-107); Glucose 70 mg/dL (74-106); Potassium 4.5 mmol/L (3.5-5.1); Sodium 138 mmol/L (136-145)
[2023-12-24 06:40] LABS: Bilirubin, Total < 0.2 mg/dL (0.2-1.0); Total Protein 7.3 g/dL (5.7-8.2)
[2023-12-25] VITALS (8 sets, daily range): BP systolic 103–126; BP diastolic 46–62; PULSE 61–106; RESP 12–18; TEMP 97.9–98.7; O2SAT 94–98
[2023-12-26] VITALS (9 sets, daily range): BP systolic 87–140; BP diastolic 54–76; PULSE 81–129; RESP 12–20; TEMP 97.8–100.3; O2SAT 95–100
[2023-12-26 17:18] LABS: Basophils # (auto) 0.1 10 ^3/uL (0-0.2); Eosinophils # (auto) 0.1 10 ^3/uL (0-0.8); Hemoglobin 8.6 g/dL (13.5-17.5)
[2023-12-26 17:20] LABS: Basophils % (auto) 0.6 % (0.0-2.0); Eosinophils % (auto) 0.7 % (0.0-7.0); Hematocrit 28.9 % (41.0-53.0); Lymphocytes % (auto) 7.5 % (10.0-50.0); Mean Corpuscular Hemoglobin 23.1 pg (28.0-32.0); Mean Corpuscular Hgb Conc. 29.9 g/dL (32.0-36.0); Mean Corpuscular Volume 77.3 fL (80.0-100.0); Monocytes # (auto) 1.1 10 ^3/uL (0-1.3); Neutrophils # (auto) 11.1 10 ^3/uL (1.6-8.6); Neutrophils % (auto) 83.2 % (37.0-80.0); Red Blood Cells 3.74 10^6/uL (4.5-5.90); Red Cell Distribution Width 21.8 % (11.8-14.3); White Blood Cell 13.4 10^3/uL (4.4-10.8)
[2023-12-26 17:43] LABS: Alanine Aminotransferase 29 U/L (7-40); Alkaline Phosphatase 239 U/L (46-116); Anion Gap 9 (5-15); Aspartate Aminotransferase 29 U/L (13-40); Bilirubin, Total 0.2 mg/dL (0.2-1.0); Blood Urea Nitrogen 36 mg/dL (9-23); Calcium 9.6 mg/dL (8.5-10.1); Carbon Dioxide 23 mmol/L (20-30); Chloride 101 mmol/L (98-107); Glucose 131 mg/dL (74-106); Potassium 4.6 mmol/L (3.5-5.1); Total Protein 7.7 g/dL (5.7-8.2)
[2023-12-26 17:44] LABS: Sodium 133 mmol/L (136-145)
[2023-12-27] VITALS (8 sets, daily range): BP systolic 86–116; BP diastolic 51–113; PULSE 69–100; RESP 16–20; TEMP 97.7–98.6; O2SAT 95–100
[2023-12-27 08:06] LABS: AFP Serum Tumor Marker 5.1 ng/mL (0.0-6.9); Homocyst(e)ine 13.2 umol/L (0.0-14.5); PSA Free 0.09 ng/mL; Prostate Specific Antigen 0.2 ng/mL (0.0-4.0); Rheumatoid Arthritis Factor <10.0 IU/mL (<14.0)
[2023-12-27] MEDS: HYDROmorphone HCL 2 MG TAB PO PRN (17:01)
[2023-12-28] VITALS (8 sets, daily range): BP systolic 92–141; BP diastolic 53–77; PULSE 83–107; RESP 17–22; TEMP 97.6–98.4; O2SAT 96–98
[2023-12-29] VITALS (8 sets, daily range): BP systolic 107–128; BP diastolic 60–80; PULSE 92–113; RESP 17–22; TEMP 97.8–98.6; O2SAT 95–100
[2023-12-29] MEDS: FERROUS SULFATE 325mg EC TAB PO SCH (09:51)
[2023-12-29 12:27] LABS: Basophils # (auto) 0.1 10 ^3/uL (0-0.2); Lymphocytes # (auto) 2.2 10 ^3/uL (0.4-5.4); Monocytes # (auto) 0.9 10 ^3/uL (0-1.3); Neutrophils % (auto) 65.3 % (37.0-80.0)
[2023-12-29 12:34] LABS: Eosinophils # (auto) 0.4 10 ^3/uL (0-0.8); Eosinophils % (auto) 3.6 % (0.0-7.0); Hematocrit 26.8 % (41.0-53.0); Hemoglobin 8.6 g/dL (13.5-17.5); Lymphocytes % (auto) 21.5 % (10.0-50.0); Mean Corpuscular Hemoglobin 25.5 pg (28.0-32.0); Mean Corpuscular Volume 79.6 fL (80.0-100.0); Monocytes % (auto) 8.6 % (0.0-12.0); Neutrophils # (auto) 6.8 10 ^3/uL (1.6-8.6); Red Blood Cells 3.37 10^6/uL (4.5-5.90); Red Cell Distribution Width 21.2 % (11.8-14.3); White Blood Cell 10.4 10^3/uL (4.4-10.8)
[2023-12-29 12:43] LABS: INR 1.05 (0.9-1.15); Prothrombin Time 11.1 sec (9.3-11.8)
[2023-12-29] MEDS: HEPARIN DRIP/D5W 100UNITS/ML 250 ML IV SCH ×2 (13:08→22:15)
[2023-12-29 13:10] LABS: % Iron Saturation 7.7 % (20-55)
[2023-12-29 14:06] LABS: Protein C Antigen 73 % (60-150)
[2023-12-29 20:25] LABS: INR 1.03 (0.9-1.15); Partial Thromboplastin Time 33.9 SEC (24.5-34.5); Prothrombin Time 10.9 sec (9.3-11.8)
[2023-12-29] MEDS: OXYBUTYNIN CHL 5 MG TAB PO SCH (22:49)
[2023-12-29] MEDS: HEPARIN SODIUM (PORCINE) 5000 UNITS/ML 1ML VIAL IV ONE (22:55)
[2023-12-30] VITALS (8 sets, daily range): BP systolic 99–124; BP diastolic 53–77; PULSE 60–114; RESP 16–20; TEMP 98.2–99.8; O2SAT 97–100
[2023-12-30 05:30] LABS: Basophils # (auto) 0.1 10 ^3/uL (0-0.2); Eosinophils # (auto) 0.3 10 ^3/uL (0-0.8); Hemoglobin 8.7 g/dL (13.5-17.5); Monocytes # (auto) 0.8 10 ^3/uL (0-1.3)
[2023-12-30 05:32] LABS: Basophils % (auto) 1.5 % (0.0-2.0); Eosinophils % (auto) 3.5 % (0.0-7.0); Hematocrit 27.4 % (41.0-53.0); Lymphocytes # (auto) 2.5 10 ^3/uL (0.4-5.4); Mean Corpuscular Hemoglobin 24.2 pg (28.0-32.0); Mean Corpuscular Hgb Conc. 31.8 g/dL (32.0-36.0); Mean Corpuscular Volume 76.3 fL (80.0-100.0); Monocytes % (auto) 8.2 % (0.0-12.0); Neutrophils # (auto) 5.9 10 ^3/uL (1.6-8.6); Neutrophils % (auto) 60.8 % (37.0-80.0); Red Blood Cells 3.59 10^6/uL (4.5-5.90); White Blood Cell 9.7 10^3/uL (4.4-10.8)
[2023-12-30 05:45] LABS: Red Cell Distribution Width 21.2 % (11.8-14.3)
[2023-12-30 05:49] LABS: Alanine Aminotransferase 39 U/L (7-40); Alkaline Phosphatase 306 U/L (46-116); Anion Gap 7 (5-15); Aspartate Aminotransferase 31 U/L (13-40); Bilirubin, Total < 0.2 mg/dL (0.2-1.0); Blood Urea Nitrogen 33 mg/dL (9-23); Calcium 9.9 mg/dL (8.5-10.1); Carbon Dioxide 26 mmol/L (20-30); Chloride 103 mmol/L (98-107); Glucose 175 mg/dL (74-106); Potassium 4.5 mmol/L (3.5-5.1); Sodium 136 mmol/L (136-145); Total Protein 7.6 g/dL (5.7-8.2)
[2023-12-30 05:53] LABS: INR 1.06 (0.9-1.15); Partial Thromboplastin Time 35.8 SEC (24.5-34.5); Prothrombin Time 11.2 sec (9.3-11.8)
[2023-12-30] MEDS: HEPARIN DRIP/D5W 100UNITS/ML 250 ML IV SCH ×3 (06:16→20:36)
[2023-12-30] MEDS: InsuLIN REG 1unit/0.01ml Soln (100units/ml) SC SCH ×2 (11:30→23:41)
[2023-12-30] MEDS: ACCU-CHEK COMFORT CURVE STRIP VI SCH ×2 (12:23→23:35)
[2023-12-30 12:34] LABS: INR 1.06 (0.9-1.15); Partial Thromboplastin Time 34.4 SEC (24.5-34.5); Prothrombin Time 11.2 sec (9.3-11.8)
[2023-12-30] MEDS: HEPARIN SODIUM (PORCINE) 5000 UNITS/ML 1ML VIAL IV ONE (13:21)
[2023-12-30 20:20] LABS: INR 1.1 (0.9-1.15); Prothrombin Time 11.6 sec (9.3-11.8)
[2023-12-30 20:24] LABS: Partial Thromboplastin Time 87.6 SEC (24.5-34.5)
[2023-12-31] VITALS (8 sets, daily range): BP systolic 98–125; BP diastolic 48–82; PULSE 63–107; RESP 15–20; TEMP 97.9–99.8; O2SAT 96–100
[2023-12-31 01:06] LABS: PSA Free 0.11 ng/mL; Prostate Specific Antigen 0.2 ng/mL (0.0-4.0)
[2023-12-31 03:00] LABS: INR 1.08 (0.9-1.15); Partial Thromboplastin Time 59.2 SEC (24.5-34.5); Prothrombin Time 11.4 sec (9.3-11.8)
[2023-12-31 08:06] LABS: Anti-Centromere B Antibody <0.2 AI (0.0-0.9); Anti-Jo-1 Antibody <0.2 AI (0.0-0.9); Anti-dsDNA Antibody 1 IU/mL (0-9); Antichromatin Antibody 0.4 AI (0.0-0.9); Antiscleroderma-70 Antibody <0.2 AI (0.0-0.9); RNP Antibody <0.2 AI (0.0-0.9); Sjogren's Anti-SS-A Antibody 0.2 AI (0.0-0.9); Sjogren's Anti-SS-B Antibody <0.2 AI (0.0-0.9); Smith Antibody 0.3 AI (0.0-0.9)
[2023-12-31 08:06] LABS: Prostate Specific Antigen 0.2 ng/mL (0.0-4.0)
[2023-12-31 09:11] LABS: INR 1.08 (0.9-1.15); Partial Thromboplastin Time 59.9 SEC (24.5-34.5); Prothrombin Time 11.4 sec (9.3-11.8)
[2023-12-31 14:58] LABS: INR 1.09 (0.9-1.15); Partial Thromboplastin Time 56.9 SEC (24.5-34.5); Prothrombin Time 11.5 sec (9.3-11.8)
[2024-01-01] VITALS (7 sets, daily range): BP systolic 101–123; BP diastolic 53–73; PULSE 91–107; RESP 16–17; TEMP 98.3–99; O2SAT 94–98
[2024-01-01 00:07] LABS: Protein S Antigen Free 95 % (61-136); Proten S Antigen Total 101 % (60-150); von Willebrand Factor (vWF) Ag 70 % (50-200)
[2024-01-01 06:28] LABS: INR 1.05 (0.9-1.15); Partial Thromboplastin Time 57.6 SEC (24.5-34.5); Prothrombin Time 11.1 sec (9.3-11.8)
[2024-01-01] MEDS ORDERED: VANCOMYCIN PER PHARMACY 0 MG IV SCH (20:30)
[2024-01-01] MEDS ORDERED: MEROPENEM 2 GM in SODIUM CHL 0.9% 250 ML IV SCH (21:00)
[2024-01-01] MEDS: MEROPENEM 1GM IVPB 100 ML IV ONE (22:50)
[2024-01-02] VITALS (8 sets, daily range): BP systolic 94–129; BP diastolic 47–75; PULSE 72–101; RESP 16–20; TEMP 37.1; O2SAT 95–97
[2024-01-02] MEDS: VANCOMYCIN 1GM/200ML 200 ML IV SCH ×2 (01:15→15:04)
[2024-01-02 08:18] LABS: Eosinophils # (auto) 0.3 10 ^3/uL (0-0.8); Monocytes # (auto) 1.2 10 ^3/uL (0-1.3)
[2024-01-02 08:21] LABS: Basophils # (auto) 0.1 10 ^3/uL (0-0.2); Basophils % (auto) 0.5 % (0.0-2.0); Eosinophils % (auto) 2.6 % (0.0-7.0); Hematocrit 28.3 % (41.0-53.0); Hemoglobin 8.3 g/dL (13.5-17.5); Lymphocytes # (auto) 2.1 10 ^3/uL (0.4-5.4); Lymphocytes % (auto) 18.7 % (10.0-50.0); Mean Corpuscular Hemoglobin 23.6 pg (28.0-32.0); Mean Corpuscular Hgb Conc. 29.3 g/dL (32.0-36.0); Mean Corpuscular Volume 80.4 fL (80.0-100.0); Monocytes % (auto) 10.4 % (0.0-12.0); Neutrophils # (auto) 7.7 10 ^3/uL (1.6-8.6); Neutrophils % (auto) 67.8 % (37.0-80.0); Nucleated Red Blood Cells % 0.1 %; Red Blood Cells 3.52 10^6/uL (4.5-5.90); White Blood Cell 11.3 10^3/uL (4.4-10.8)
[2024-01-02 08:22] LABS: Red Cell Distribution Width 21.9 % (11.8-14.3)
[2024-01-02 08:34] LABS: INR 1.07 (0.9-1.15); Partial Thromboplastin Time 39.8 SEC (24.5-34.5); Prothrombin Time 11.3 sec (9.3-11.8)
[2024-01-02 08:40] LABS: Anisocytosis Slight; Hypochromia Moderate; Platelet Estimate Increased
[2024-01-02] MEDS: IOHEXOL 300 MG/ML 100ML BOTTLE IJ ONE (09:15)
[2024-01-02] MEDS: MEROPENEM 2 GM in SODIUM CHL 0.9% 250 ML IV SCH (12:15)
[2024-01-02] MEDS: HEPARIN DRIP/D5W 100UNITS/ML 250 ML IV SCH (12:17)
[2024-01-02] MEDS: ACCU-CHEK COMFORT CURVE STRIP VI SCH (12:54)
[2024-01-02] MEDS: InsuLIN REG 1unit/0.01ml Soln (100units/ml) SC SCH (12:56)
[2024-01-02 13:07] LABS: Dilute Prothrombin Time(dPT) 40.6 sec (0.0-47.6); Hexagonal Phase Phospholipid 4 sec (0-11); PTT-LA 46.3 sec (0.0-43.5); PTT-LA Mix 43.1 sec (0.0-40.5); Thrombin Time 37.2 sec (0.0-23.0); Thrombin Time Mix 26.8 sec (0.0-23.0); dPT Confirm Ratio 0.86 Ratio (0.00-1.34); dRVVT 38.5 sec (0.0-47.0)
[2024-01-02 14:06] LABS: Lupus Interpretation Comment: (.)
[2024-01-02 20:03] LABS: INR 1.07 (0.9-1.15); Prothrombin Time 11.3 sec (9.3-11.8)
[2024-01-02 20:10] LABS: Partial Thromboplastin Time 73.8 SEC (24.5-34.5)
[2024-01-03] VITALS (8 sets, daily range): BP systolic 105–136; BP diastolic 53–75; PULSE 64–99; RESP 18–19; TEMP 36.6; O2SAT 94–98
[2024-01-03 10:28] LABS: Basophils # (auto) 0.1 10 ^3/uL (0-0.2); Eosinophils # (auto) 0.4 10 ^3/uL (0-0.8); Hemoglobin 8.1 g/dL (13.5-17.5)
[2024-01-03 10:30] LABS: Basophils % (auto) 0.8 % (0.0-2.0); Eosinophils % (auto) 4.9 % (0.0-7.0); Hematocrit 26.6 % (41.0-53.0); Lymphocytes % (auto) 24.6 % (10.0-50.0); Mean Corpuscular Hemoglobin 23.3 pg (28.0-32.0); Mean Corpuscular Hgb Conc. 30.4 g/dL (32.0-36.0); Mean Corpuscular Volume 76.4 fL (80.0-100.0); Monocytes # (auto) 0.7 10 ^3/uL (0-1.3); Monocytes % (auto) 8.9 % (0.0-12.0); Neutrophils # (auto) 4.8 10 ^3/uL (1.6-8.6); Neutrophils % (auto) 60.8 % (37.0-80.0); Red Blood Cells 3.49 10^6/uL (4.5-5.90)
[2024-01-03 10:32] LABS: Red Cell Distribution Width 21.6 % (11.8-14.3)
[2024-01-03 10:38] LABS: Chloride 104 mmol/L (98-107); Potassium 5.3 mmol/L (3.5-5.1); Sodium 134 mmol/L (136-145)
[2024-01-03 10:39] LABS: Anion Gap 5 (5-15); Carbon Dioxide 25 mmol/L (20-30)
[2024-01-03 10:40] LABS: Calcium 9.5 mg/dL (8.5-10.1)
[2024-01-03 10:44] LABS: Blood Urea Nitrogen 35 mg/dL (9-23); Glucose 225 mg/dL (74-106); INR 1.03 (0.9-1.15); Partial Thromboplastin Time 28.5 SEC (24.5-34.5); Prothrombin Time 10.9 sec (9.3-11.8)
[2024-01-03] MEDS: HEPARIN SODIUM (PORCINE) 5000 UNITS/ML 1ML VIAL IV ONE (12:35)
[2024-01-03] MEDS: HEPARIN DRIP/D5W 100UNITS/ML 250 ML IV SCH ×2 (12:35→20:17)
[2024-01-04] VITALS (7 sets, daily range): BP systolic 96–134; BP diastolic 51–83; PULSE 85–92; RESP 16–19; TEMP 97.6–97.9; O2SAT 96–97
[2024-01-04 02:48] LABS: INR 1.06 (0.9-1.15); Partial Thromboplastin Time 24.6 SEC (24.5-34.5); Prothrombin Time 11.2 sec (9.3-11.8)
[2024-01-04] MEDS: HEPARIN SODIUM (PORCINE) 5000 UNITS/ML 1ML VIAL IV ONE (03:13)
[2024-01-04 09:47] LABS: Chloride 106 mmol/L (98-107); Potassium 4.5 mmol/L (3.5-5.1); Sodium 136 mmol/L (136-145)
[2024-01-04 09:48] LABS: Anion Gap 5 (5-15); Carbon Dioxide 25 mmol/L (20-30)
[2024-01-04 09:49] LABS: Calcium 9.8 mg/dL (8.5-10.1)
[2024-01-04 09:53] LABS: BUN/Creatinine Ratio 33.3 (10.0-20.0); Basophils # (auto) 0.1 10 ^3/uL (0-0.2); Basophils % (auto) 0.7 % (0.0-2.0); Blood Urea Nitrogen 28 mg/dL (9-23); Eosinophils # (auto) 0.5 10 ^3/uL (0-0.8); Eosinophils % (auto) 5.5 % (0.0-7.0); Glucose 92 mg/dL (74-106); Hematocrit 26.5 % (41.0-53.0); Lymphocytes # (auto) 2.5 10 ^3/uL (0.4-5.4); Lymphocytes % (auto) 29.6 % (10.0-50.0); Mean Corpuscular Hgb Conc. 30.2 g/dL (32.0-36.0); Mean Corpuscular Volume 79.3 fL (80.0-100.0); Monocytes # (auto) 0.7 10 ^3/uL (0-1.3); Monocytes % (auto) 8.5 % (0.0-12.0); Neutrophils # (auto) 4.7 10 ^3/uL (1.6-8.6); Neutrophils % (auto) 55.7 % (37.0-80.0); Nucleated Red Blood Cells % 0.1 %; Red Blood Cells 3.34 10^6/uL (4.5-5.90); White Blood Cell 8.5 10^3/uL (4.4-10.8)
[2024-01-04 09:54] LABS: Red Cell Distribution Width 21.4 % (11.8-14.3)
[2024-01-04 10:15] LABS: INR 1.08 (0.9-1.15); Prothrombin Time 11.4 sec (9.3-11.8)
[2024-01-04] MEDS: HEPARIN DRIP/D5W 100UNITS/ML 250 ML IV SCH (12:11)
[2024-01-04] MEDS: VANCOMYCIN 750mg/150ml 150 ML IV SCH (15:18)
[2024-01-04 18:58] LABS: INR 1.08 (0.9-1.15); Partial Thromboplastin Time 68.5 SEC (24.5-34.5); Prothrombin Time 11.4 sec (9.3-11.8)
[2024-01-04] MEDS: INSULIN LANTUS (GLARGINE) 1 /0.01ml (100units/ml) SC SCH (22:00)
[2024-01-05] VITALS (8 sets, daily range): BP systolic 99–122; BP diastolic 50–80; PULSE 81–104; RESP 18–22; TEMP 97.7–98; O2SAT 96–100
[2024-01-05 02:26] LABS: INR 1.08 (0.9-1.15); Prothrombin Time 11.4 sec (9.3-11.8)
[2024-01-05 02:29] LABS: Partial Thromboplastin Time 125.5 SEC (24.5-34.5)
[2024-01-05] MEDS: HEPARIN DRIP/D5W 100UNITS/ML 250 ML IV SCH (03:45)
[2024-01-05 10:51] LABS: INR 1.09 (0.9-1.15); Partial Thromboplastin Time 68.3 SEC (24.5-34.5); Prothrombin Time 11.5 sec (9.3-11.8)
[2024-01-05 21:10] LABS: INR 1.08 (0.9-1.15); Partial Thromboplastin Time 49.4 SEC (24.5-34.5); Prothrombin Time 11.4 sec (9.3-11.8)
[2024-01-06] VITALS (8 sets, daily range): BP systolic 105–130; BP diastolic 54–80; PULSE 85–96; RESP 16–20; TEMP 97.6–98.6; O2SAT 93–98
[2024-01-06] MEDS ORDERED: VANCOMYCIN 750mg/150ml 150 ML IV SCH (05:00)
[2024-01-06] MEDS: INSULIN LANTUS (GLARGINE) 1 /0.01ml (100units/ml) SC SCH (06:40)
[2024-01-06] MEDS: VANCOMYCIN 750mg/150ml 150 ML IV SCH (10:09)
[2024-01-06 15:14] LABS: Hemoglobin 8.7 g/dL (13.5-17.5); Mean Corpuscular Hgb Conc. 30.7 g/dL (32.0-36.0); Monocytes # (auto) 0.5 10 ^3/uL (0-1.3); Monocytes % (auto) 5.1 % (0.0-12.0); Neutrophils # (auto) 6.5 10 ^3/uL (1.6-8.6)
[2024-01-06 15:16] LABS: Basophils # (auto) 0.2 10 ^3/uL (0-0.2); Basophils % (auto) 1.7 % (0.0-2.0); Eosinophils # (auto) 0.3 10 ^3/uL (0-0.8); Eosinophils % (auto) 3.2 % (0.0-7.0); Hematocrit 28.3 % (41.0-53.0); Lymphocytes # (auto) 2.7 10 ^3/uL (0.4-5.4); Lymphocytes % (auto) 26.7 % (10.0-50.0); Mean Corpuscular Hemoglobin 23.5 pg (28.0-32.0); Mean Corpuscular Volume 76.6 fL (80.0-100.0); Neutrophils % (auto) 63.3 % (37.0-80.0); Red Blood Cells 3.69 10^6/uL (4.5-5.90); White Blood Cell 10.3 10^3/uL (4.4-10.8)
[2024-01-06 15:26] LABS: Chloride 103 mmol/L (98-107); Potassium 5.4 mmol/L (3.5-5.1); Sodium 134 mmol/L (136-145)
[2024-01-06 15:27] LABS: Anion Gap 5 (5-15); Calcium 9.8 mg/dL (8.5-10.1); Carbon Dioxide 26 mmol/L (20-30)
[2024-01-06 15:32] LABS: Blood Urea Nitrogen 30 mg/dL (9-23)
[2024-01-06 15:41] LABS: Glucose 289 mg/dL (74-106)
[2024-01-06] MEDS: APIXABAN 5 MG TAB PO ONE (16:26)
[2024-01-06] MEDS: APIXABAN 5 MG TAB PO SCH (21:24)
[2024-01-06] MEDS ORDERED: DEXTROSE (50%) 50ML SYRG IV PRN (23:30)
[2024-01-07] VITALS (9 sets, daily range): BP systolic 114–139; BP diastolic 74–87; PULSE 83–96; RESP 16–18; TEMP 97.6–98.3; O2SAT 96–99
[2024-01-07] MEDS ORDERED: HYDROmorphone HCL 2 MG TAB PO PRN (09:30)
[2024-01-07] MEDS: ACCU-CHEK COMFORT CURVE STRIP VI SCH ×2 (11:30)
[2024-01-07] MEDS: InsuLIN REG 1unit/0.01ml Soln (100units/ml) SC SCH ×2 (11:30)
[2024-01-07] MEDS: HYDROmorphone HCL 2 MG TAB PO PRN (11:42)
[2024-01-07] MEDS: AMOXICILLIN/CLAVUL 875 MG TAB PO SCH (11:55)
== END 2024-01-08 00:06 | disposition short-term general hospital (02) | DRG 300 ==
LOC: ER 19:29 → TELE 12-12 02:38 → TELE-CENTR 12-12 02:38
PROVIDERS: ADMIT Internal Medicine Geriatric Medicine; ATTEND Internal Medicine Geriatric Medicine
PROC: B517YZZ Fluoroscopy of Left Subclavian Vein using Other Contrast (ICD-10-PCS; principal; 2023-12-16)
PROC: 0XJ Anatomical Regions, Upper Extremities, Inspection (ICD-10-PCS; 2023-12-16)
DX: I82.623 Acute embolism and thrombosis of deep veins of upper extremity, bilateral (principal); E87.1 Hypo-osmolality and hyponatremia; L03.114 Cellulitis of left upper limb; N17.9 Acute kidney failure, unspecified; I24.89 Other forms of acute ischemic heart disease; I82.B12 Acute embolism and thrombosis of left subclavian vein; I82.C12 Acute embolism and thrombosis of left internal jugular vein; I82.403 Acute embolism and thrombosis of unspecified deep veins of lower extremity, bilateral; I82.A11 Acute embolism and thrombosis of right axillary vein; E11.65 Type 2 diabetes mellitus with hyperglycemia; E87.5 Hyperkalemia; R74.01 Elevation of levels of liver transaminase levels; E78.5 Hyperlipidemia, unspecified; R74.8 Abnormal levels of other serum enzymes; I10 Essential (primary) hypertension; I34.0 Nonrheumatic mitral (valve) insufficiency; R79.89 Other specified abnormal findings of blood chemistry; F17.210 Nicotine dependence, cigarettes, uncomplicated; D50.9 Iron deficiency anemia, unspecified; E11.51 Type 2 diabetes mellitus with diabetic peripheral angiopathy without gangrene; X58.XXXA Exposure to other specified factors, initial encounter; Z79.01 Long term (current) use of anticoagulants; Z89.512 Acquired absence of left leg below knee; Z89.611 Acquired absence of right leg above knee; Z83.3 Family history of diabetes mellitus; Z79.4 Long term (current) use of insulin; Z89.511 Acquired absence of right leg below knee; Z82.49 Family history of ischemic heart disease and other diseases of the circulatory system; Z80.6 Family history of leukemia; Z86.72 Personal history of thrombophlebitis; Y93.89 Activity, other specified; Y92.89 Other specified places as the place of occurrence of the external cause; Y99.8 Other external cause status
CPT/HCPCS: 36010; 36415; 70450; 71045; 71260; 71275; 73200; 74177; 76705; 80048; 80053; 80202; 80307; 81001; 81241; 82010; 82105; 82378; 82550; 82728; 82962; 83090; 83516; 83540; 83550; 83605; 83615; 83735; 84154; 84484; 85025; 85246; 85302; 85305; 85306; 85379; 85610; 85613; 85670; 85705; 85730; 85732; 86225; 86235; 86301; 86431; 86704; 86706; 86708; 86803; 87040; 87081; 87340; 93005; 93306; 93970; 96379; 97163; 99152; G0378; J1815; J2185; J2250; J2405; J2543; J2704; Q9967